=== PATIENT | female | born 1970 | race Caucasian/White ===

== ENCOUNTER → 2020-01-24 08:41 | Outpatient (BNVA) | payer OTHER, SELFPAY | PROVIDERS: PCP Internal Medicine; Referring Provider Internal Medicine; Visit Provider Surgery | DX: Z76.89 Persons encountering health services in other specified circumstances (principal) ==

== ENCOUNTER → 2020-01-25 08:11 | Outpatient (BNVA) | payer OTHER, SELFPAY | PROVIDERS: PCP Internal Medicine; Visit Provider Dietitian, Registered | DX: Z76.89 Persons encountering health services in other specified circumstances (principal) ==

== ENCOUNTER → 2020-02-08 13:37 | Outpatient (BNVA) | payer OTHER, SELFPAY | PROVIDERS: PCP Internal Medicine; Referring Provider Internal Medicine; Visit Provider Physician Assistant | DX: Z76.89 Persons encountering health services in other specified circumstances (principal) ==

== ENCOUNTER → 2020-02-29 10:43 | Outpatient (BNVA) | payer OTHER, SELFPAY | PROVIDERS: PCP Internal Medicine; Visit Provider Physician Assistant | DX: Z76.89 Persons encountering health services in other specified circumstances (principal) ==

== ENCOUNTER → 2020-03-05 12:20 | Outpatient (BNVA) | payer OTHER, SELFPAY | PROVIDERS: Visit Provider Surgery | DX: Z76.89 Persons encountering health services in other specified circumstances (principal) ==

== ENCOUNTER → 2020-03-16 13:59 | Outpatient (BNVA) | payer OTHER, SELFPAY | PROVIDERS: PCP Internal Medicine; Visit Provider Physician Assistant | DX: Z76.89 Persons encountering health services in other specified circumstances (principal) ==

== ENCOUNTER → 2020-03-16 13:59 | Outpatient (BNVA) | payer OTHER, SELFPAY | PROVIDERS: PCP Internal Medicine; Visit Provider Physician Assistant ==

== ENCOUNTER 2020-03-16 15:56 | Outpatient (REF) | payer OTHER, SELFPAY ==
[2020-03-16 16:32] LABS: MANUAL DIFF FLAG NO
[2020-03-16 16:39] LABS: Basophils Percent Auto 0.4 % (0-2); Eosinophils Absolute Auto 0.1 X10*3/uL (0.0-0.4); Hematocrit 37.8 % (37-47); Hemoglobin 12.2 g/dl (12.0-16.0); Imm Gran Abs Auto 0.02 X10*3/uL (0.00-0.03); Imm Gran Pct Auto 0.2 % (0.0-0.4); Lymphocytes Absolute Auto 2.4 X10*3/uL (1.2-4.9); Lymphocytes Percent Auto 25.6 % (20-40); Mean Corpuscular HGB Conc 32.3 g/dl (31.0-35.0); Mean Corpuscular Hemoglobin 28.5 pg (27.0-33.0); Mean Corpuscular Volume 88.3 fL (80-98); Mean Platelet Volume 12.1 fL (9.4-12.3); Monocytes Absolute Auto 0.5 X10*3/uL (0.1-1.2); Monocytes Percent Auto 5.4 % (2-11); Neutrophils Absolute Auto 6.3 X10*3/uL (2.0-8.3); Neutrophils Percent Auto 67.4 % (45-73); Platelet Count 249 X10*3/uL (160-400); Red Blood Count 4.28 X10*6/uL (4.20-5.50); Red Cell Distribution Width 13.4 % (11.0-16.0); White Blood Count 9.4 X10*3/uL (4.8-10.8)
[2020-03-16 17:12] LABS: Albumin Level 4.2 g/dL (3.5-5.0); Anion Gap 14 (12-20); Blood Urea Nitrogen 18 mg/dL (9-16); Calcium 8.9 mg/dL (8.4-10.2); Carbon Dioxide 25 mmol/L (22-29); Chloride 105 mmol/L (96-108); Estimated Glomerular Filt Rate > 60; Glucose Random 90 mg/dL (60-115); Potassium 4.3 mmol/l (3.3-5.1); Sodium 140 mmol/L (135-145)
[2020-03-16 18:22] LABS: Glucose Urine UA NEG (NEG); Leukocyte Esterase Urine NEG (NEG); Nitrite Urine NEG (NEG); PH 5.5 (5.0-8.0); Specific Gravity - Urine >= 1.030 (1.005-1.025); Urine Blood 2+ (NEG); Urine Ketones NEG (NEG); Urine Protein NEG (NEG-TRACE)
[2020-03-16 18:26] LABS: Appearance Urine CLEAR; Color Urine YELLOW
[2020-03-16 18:44] LABS: Bacteria Urine TRACE /LPF; Squamous Epithelial Cell Urine 4+ /LPF; WBC Urine 0-2 /HPF (0-4)
== END 2020-03-16 15:57 | disposition home or self-care (01) ==
LOC: HO.LAB 15:56
PROVIDERS: PCP Internal Medicine; Visit Provider Surgery
DX: Z01.818 Encounter for other preprocedural examination (principal)
CPT/HCPCS: 36415; 80048; 81001; 82040; 85025

== ENCOUNTER 2020-03-19 11:45 | Outpatient (REF) | payer OTHER, SELFPAY ==
--- NOTE | 2020-03-19 11:54 | ECG_ITS ---
Test Reason : CP Blood Pressure : / mmHG Vent. Rate : 063 BPM Atrial Rate : 063 BPM P-R Int : 160 ms QRS Dur : 082 ms QT Int : 450 ms P-R-T Axes : 036 038 019 degrees QTc Int : 460 ms Normal sinus rhythm Normal ECG No previous ECGs available Referred By: Niurka Starkey Electronically Signed By:Ang Ruiz
[2020-03-19 13:01] LABS: Estimated Average Glucose 108 mg/dL; Hemoglobin A1c % 5.4 %
== END 2020-03-19 11:46 | disposition home or self-care (01) ==
LOC: HO.LAB 11:45
PROVIDERS: PCP Plastic Surgery; Visit Provider Surgery
DX: R06.02 Shortness of breath (principal)
CPT/HCPCS: 83036; 93005

== ENCOUNTER 2020-03-21 06:26 | Inpatient (IN) | payer OTHER, SELFPAY ==
[2020-03-15 08:50] VITALS: BMI 39.1
[2020-03-15 12:51] VITALS: BMI 39.1
--- NOTE | 2020-03-20 09:05 | MHC.SHP ---
Pre-Procedural Eval Section B Chief Complaint: morbid obesity Allergies: Allergies Allergy/AdvReac Type Severity Reaction Status Date / Time latex Allergy Intermediate Itching Verified 03/15/20 12:59 Plan Patient has been examined and remains a candidate for the planned procedure
--- NOTE | 2020-03-20 12:37 | HO.ANESPROP2 ---
Documented by User: Shiela Gallardo 03/20/20 12:40 HPI - Anesthesia Eval Consult details Narrative: 49yo F for Gastric Sleeve *NO IV/BP RIGHT SIDE* PMFSH Past Medical History Medical History Back pain History of radiation therapy History of right breast cancer Morbid obesity with BMI of 40.0-44.9, adult Obesity (BMI 30-39.9) Spinal stenosis Family History Family History Father Heart attack Type 2 diabetes mellitus Mother History of colon cancer Sister No problems noted. Sister Multiple sclerosis Surgical History Surgical History H/O elbow surgery H/O foot surgery History of colonoscopy History of endometrial ablation Status post right breast lumpectomy Social History Social History Are you a primary manager urgent care to a significant other at home: No Do you presently have visiting nurse or other home services: No Alcohol intake: current Alcohol intake frequency: a few times a month Smoking Status: Never smoker Use of substances other than those prescribed or required for medical reasons: No Have you been hit, kicked, punched, or otherwise hurt by someone within the past year? If so, by whom?: No Advance Directives Information Provided: No Recently lost weight without trying: No Meds Allergies Allergy/AdvReac Type Severity Reaction Status Date / Time latex Allergy Intermediate Itching Verified 03/15/20 12:59 perfume AdvReac Shortness Verified 03/21/20 06:26 of Breath Home Medications Medication Instructions Recorded Confirmed Type biotin 10,000 mcg capsule mcg PO DAILY cap 01/24/20 03/05/20 History cholecalciferol (vitamin D3) 250 250 mcg PO DAILY 01/24/20 03/05/20 History mcg (10,000 unit) capsule mecobalamin (vitamin B12) 1,000 1,000 mcg PO DAILY 01/24/20 03/05/20 History mcg chewable tablet omega-3 fatty acids 1,000 mg 1,000 mg PO DAILY 01/24/20 03/15/20 History capsule tamoxifen 10 mg tablet 10 mg PO DAILY tab 01/24/20 03/15/20 History ibuprofen 400 mg tablet 400 mg PO Q8H 02/08/20 03/05/20 History gabapentin 800 mg tablet 300 mg PO BID tab 03/05/20 03/05/20 History gabapentin 300 mg PO DAILY 03/15/20 03/15/20 History multivitamin 1 tab PO DAILY 03/15/20 03/15/20 History phentermine 37.5 mg PO DAILY 03/15/20 03/15/20 History Exam Exam Date and Time: March 20, 2020 1237 Height,Weight and Vital Signs: Height 5 ft 5 in Weight 106.594 kg Pertinent Lab Results Pertinent Lab Results: Laboratory Tests 03/16/20 16:10 Blood Type O Positive Antibody Screen NEGATIVE Laboratory Tests 03/16/20 03/16/20 03/19/20 16:10 16:10 12:30 WBC 9.4 Hgb 12.2 Hct 37.8 Plt Count 249 Sodium 140 Potassium 4.3 Chloride 105 Carbon Dioxide 25 BUN 18 H Creatinine 0.74 Hemoglobin A1c % 5.4 Calcium 8.9 Albumin 4.2 Narrative Narrative: EKG 03/19/20: Normal sinus rhythm Assessment and Plan Assessment Anesthesia Assessment: Chart Reviewed Documented by User: Sandee Conley 03/21/20 08:03 [facility] Past Medical History Medical History Back pain History of radiation therapy History of right breast cancer Morbid obesity with BMI of 40.0-44.9, adult Obesity (BMI 30-39.9) Spinal stenosis Family History Family History Father Heart attack Type 2 diabetes mellitus Mother History of colon cancer Sister No problems noted. Sister Multiple sclerosis Family history of problems with anesthesia: No Surgical History Surgical History H/O elbow surgery H/O foot surgery History of colonoscopy History of endometrial ablation Status post right breast lumpectomy History of Problems with Anesthesia: No Social History Social History Are you a primary manager urgent care to a significant other at home: No Do you presently have visiting nurse or other home services: No Alcohol intake: current Alcohol intake frequency: a few times a month Smoking Status: Never smoker Use of substances other than those prescribed or required for medical reasons: No Have you been hit, kicked, punched, or otherwise hurt by someone within the past year? If so, by whom?: No Advance Directives Information Provided: No Recently lost weight without trying: No Meds Allergies Allergy/AdvReac Type Severity Reaction Status Date / Time latex Allergy Intermediate Itching Verified 03/15/20 12:59 perfume AdvReac Shortness Verified 03/21/20 06:26 of Breath Home Medications Medication Instructions Recorded Confirmed Type biotin 10,000 mcg capsule mcg PO DAILY cap 01/24/20 03/05/20 History cholecalciferol (vitamin D3) 250 250 mcg PO DAILY 01/24/20 03/05/20 History mcg (10,000 unit) capsule mecobalamin (vitamin B12) 1,000 1,000 mcg PO DAILY 01/24/20 03/05/20 History mcg chewable tablet omega-3 fatty acids 1,000 mg 1,000 mg PO DAILY 01/24/20 03/15/20 History capsule tamoxifen 10 mg tablet 10 mg PO DAILY tab 01/24/20 03/15/20 History ibuprofen 400 mg tablet 400 mg PO Q8H 02/08/20 03/05/20 History gabapentin 800 mg tablet 300 mg PO BID tab 03/05/20 03/05/20 History gabapentin 300 mg PO DAILY 03/15/20 03/15/20 History multivitamin 1 tab PO DAILY 03/15/20 03/15/20 History phentermine 37.5 mg PO DAILY 03/15/20 03/15/20 History Exam Height,Weight and Vital Signs: Vital Signs Temp Pulse Resp BP Pulse Ox 03/21/20 06:53 97.8 F 68 16 121/77 100 Pertinent Lab Results Pertinent Lab Results: Laboratory Last Values Urine Test NEGATIVE (NEGATIVE) 03/21/20 06:30 COVID-19 (DELFIN) Negative (Negative) 03/21/20 06:30 COVID-19 Clin Com See Note 03/21/20 06:30 Blood Type O Positive 03/16/20 16:10 Antibody Screen NEGATIVE 03/16/20 16:10 Airway Mallampati Class: II TM Dist: >3cm Neck ROM: Full Heart: RRR Lungs: CTAB Assessment and Plan Assessment Anesthesia Assessment: Anesthesia Plan Discussed and Chart Reviewed Final Anesthetic Review NPO: Yes ASA Class: III Final Preanesthetic Review: No Changes in Pt Med Stat, Meds/Allgs Chart Reviewed, Consent Obtained/Reviewed and Anes Risks/Benef Reviewed Patient Risk: Intermediate Procedure Risk: Intermediate Assessment/Block/Sedation in SS: Assess/Block/Sedation-SS Anesthetic Plan Anesthetic Plan: GA Disposition: Standard PACU
[2020-03-21] VITALS (13 sets, daily range): BP systolic 120–169; BP diastolic 68–99; PULSE 68–85; RESP 14–20; TEMP 36.1–36.9; O2SAT 97–100
[2020-03-21 06:55] LABS: COVID-19 Test Negative (Negative)
[2020-03-21 07:01] LABS: UPreg QC Valid YES; Urine Pregnancy NEGATIVE (NEGATIVE)
--- NOTE | 2020-03-21 10:07 | PM.OP ---
Brief Operative Note Date of Service: 03/21/20 Pre-op diagnosis: Obesity BMI 39.1 Post-op diagnosis: other (Same and hiatal hernia) Procedure: Laparoscopic sleeve gastrectomy, paraesophageal hernia repair, Atilio block, intraoperative endoscopy Implants: None Surgeon: Niurka Starkey MD Anesthesia: HI [employer] Photographer: Solange Aguilar Estimated blood loss (mL): 20 Pathology: other (Partial gastrectomy) Condition: stable Disposition: PACU
--- NOTE | 2020-03-21 10:08 | W.PM.OPN ---
Operative Note Operative Note Date of Service: 03/21/20 Narrative: Patient was brought into the operating room and placed on the operating room table in the supine position. General anesthesia was induced. Normal DVT prophylaxis was instituted and the patient received 2 grams of cefotetan preoperatively. The abdomen was then prepped and draped in the normal sterile fashion. A safety time-out was performed. A mixture of 1% lidocaine with epinephrine and ??% Marcaine plain was used to anesthetize the planned incision site in the left upper quadrant. A #11 scalpel was used to make a 5 mm left upper quadrant transverse incision through which a veress needle was placed. Three pops were heard going through the fascia. A saline drop test was used to confirm that the veress needle was intraabdominal. An optiview technique was then used to place a 5mm port in the left upper quadrant. A 5 mm 30 degree laproscope was then placed through this port and the abdominal cavity was surveyed and was normal. The patient was placed in reverse Trendelenburg positioning. A roselyn liver retractor was then placed in the subxyphoid position and it was used to hold up the left lobe of the liver to the abdominal wall. This was secured to the bed using the liver retractor loomis. A HOLLEY block was then performed for pain control on the right side of the abdomen. A 5 mm port was placed in the right upper quadrant near the falciform ligament. A 12 mm port was then placed in the mid epigastrium. One additional 5 mm port was placed in the left upper quadrant just to the left of the placement of the first port. I then performed a HOLLEY block on the left side of the abdomen. I then removed the epigastric fat pad; there was a small (2 cm) anterior hiatal hernia noted. I reapproximated the left and right crura with a total of 2 stitches of 2-0 ethibond and a laparoscopic knot pusher. There was no residual hiatal hernia. I then opened up the angle of His. We then gained entry into the lesser sac about 4-5 cm from the pylorus. I had anesthesia place a 34 Tunisian orogastric tube into the distal antrum to use as a sizing tool for gastric pouch size. I divided the short gastric vessels up to the angle of His. We then started the creation of the gastric pouch by firing a 60 mm purple load endostapler up the stomach about 4-5 cm from the pylorus. We completed the creation of the gastric pouch using a total of 4 firings of a 60 mm and 1 firing of a 45 mm purple load stapler. We had anesthesia remove the orogastric tube, then we clamped across the distal antrum using a fired 60 mm endostapler. We flattened the patient and then instilled normal saline surrounding the newly created staple line. I then performed an on-table endoscopy. I passed the gastroscopy into the posterior oropharynx and down the esophagus evaluating the esophageal mucosa which was normal. There was no evidence of hiatal hernia. I passed the gastroscope into the gastric pouch and insufflated the gastric pouch. There was healthy pink mucosa and no evidence of active bleeding. There was no evidence of leak on laparoscopy. I desufflated the gastric pouch and removed the endoscope. I removed the endostapler from the abdomen and suctioned the fluid from the left upper quadrant. I then removed the partial gastrectomy specimen through the epigastric 12 mm port site. I reapproximated the 12 mm port using a 0 maxon suture with a laparoscopic suture passer. I instilled local anesthetic into the fascial closure site and tied the suture down at a pressure of 8-10 mm of Hg. There was no residual fascial defect. We removed the liver retractor and the left upper quadrant 5 mm ports under direct visualization. There was no evidence of any active bleeding. I desufflated the abdomen through the last remaining port and removed the laparoscope and 5 mm port. We reapproximated all incisions with a 4-0 monocryl subcuticular stitch. We cleaned and dried the abdominal skin and applied dermabond skin glue. All count were correct at the end of the case. The patient was awake and in stable condition prior to extubation and transfer to the recovery room.
[2020-03-21] MEDS: Lactated Ringers 1,000 ML 100 ML IVCONT (13:59)
[2020-03-21] MEDS: HYDROmorphone HCl 0.5 MG/0.5 ML SYRINGE 0.25 MG IVPUSH (14:00)
[2020-03-21] MEDS: Metoclopramide HCl 10 MG/2 ML VIAL IVPUSH (14:00)
[2020-03-21 15:55] LABS: Basophils Percent Auto 0.1 % (0-2); Hemoglobin 11.8 g/dl (12.0-16.0); Imm Gran Abs Auto 0.08 X10*3/uL (0.00-0.03); Imm Gran Pct Auto 0.5 % (0.0-0.4); Lymphocytes Absolute Auto 0.6 X10*3/uL (1.2-4.9); Lymphocytes Percent Auto 4.2 % (20-40); MANUAL DIFF FLAG SCAN; Mean Corpuscular HGB Conc 31.9 g/dl (31.0-35.0); Mean Corpuscular Volume 87.9 fL (80-98); Mean Platelet Volume 11.3 fL (9.4-12.3); Monocytes Absolute Auto 0.1 X10*3/uL (0.1-1.2); Monocytes Percent Auto 0.8 % (2-11); Neutrophils Absolute Auto 13.7 X10*3/uL (2.0-8.3); Neutrophils Percent Auto 94.4 % (45-73); Platelet Count 286 X10*3/uL (160-400); Red Blood Count 4.21 X10*6/uL (4.20-5.50); Red Cell Distribution Width 13.4 % (11.0-16.0); SCAN SMEAR FLAG 1; White Blood Count 14.6 X10*3/uL (4.8-10.8)
[2020-03-21 16:16] LABS: SLIDE REVIEW VERIFIED
[2020-03-21 16:28] LABS: Anion Gap 11 (12-20); Blood Urea Nitrogen 18 mg/dL (9-16); Calcium 8.1 mg/dL (8.4-10.2); Carbon Dioxide 28 mmol/L (22-29); Chloride 104 mmol/L (96-108); Creatinine Clr Calc Pharmacy 97.1; Estimated Glomerular Filt Rate > 60; Glucose Random 150 mg/dL (60-115); Potassium 4.6 mmol/l (3.3-5.1); Sodium 138 mmol/L (135-145)
--- NOTE | 2020-03-21 16:39 | PC.NURSE ---
PT RECIEVED INTO ROOM 387 AT 1345. SHE WAS AWAKE. UP TO BR WITH ASSSIT. ORIENTED TO UNIT. INCENTIVE GIVEN, STARTED PHASE 2 DIET. MEDICATED FOR PAIN AND SLIGHT NAUSEA. INCISION SITED D&I. VOIDED AGAIN AT 1515 300 MLS.
[2020-03-21] MEDS: ondansetron HCL 4 MG/2 ML VIAL IVPUSH (17:33)
[2020-03-21] MEDS: Famotidine/PF 20 MG/2 ML VIAL IVPUSH (20:50)
[2020-03-22] VITALS: BP 131/61; PULSE 70; RESP 18; TEMP 36.3; O2SAT 95
[2020-03-22] MEDS: ondansetron HCL 4 MG/2 ML VIAL IVPUSH ×2 (02:10→08:45)
[2020-03-22 03:51] VITALS: BP 146/73; PULSE 72; RESP 16; TEMP 35.8; O2SAT 97
[2020-03-22 04:09] LABS: Basophils Percent Auto 0.3 % (0-2); Eosinophils Percent Auto 0.3 % (0-4); Hematocrit 32.6 % (37-47); Hemoglobin 10.8 g/dl (12.0-16.0); Imm Gran Abs Auto 0.05 X10*3/uL (0.00-0.03); Imm Gran Pct Auto 0.3 % (0.0-0.4); Lymphocytes Absolute Auto 2.3 X10*3/uL (1.2-4.9); Lymphocytes Percent Auto 15.6 % (20-40); Mean Corpuscular HGB Conc 33.1 g/dl (31.0-35.0); Mean Corpuscular Hemoglobin 28.9 pg (27.0-33.0); Mean Corpuscular Volume 87.2 fL (80-98); Mean Platelet Volume 11.1 fL (9.4-12.3); Monocytes Absolute Auto 0.8 X10*3/uL (0.1-1.2); Monocytes Percent Auto 5.2 % (2-11); Neutrophils Absolute Auto 11.5 X10*3/uL (2.0-8.3); Neutrophils Percent Auto 78.3 % (45-73); Platelet Count 269 X10*3/uL (160-400); Red Blood Count 3.74 X10*6/uL (4.20-5.50); Red Cell Distribution Width 13.2 % (11.0-16.0); White Blood Count 14.7 X10*3/uL (4.8-10.8)
[2020-03-22 04:11] LABS: MANUAL DIFF FLAG NO
[2020-03-22] MEDS: Lactated Ringers 1,000 ML 100 ML IVCONT (04:37)
[2020-03-22 04:38] LABS: Anion Gap 12 (12-20); Blood Urea Nitrogen 11 mg/dL (9-16); Calcium 8.2 mg/dL (8.4-10.2); Carbon Dioxide 25 mmol/L (22-29); Chloride 106 mmol/L (96-108); Estimated Glomerular Filt Rate > 60; Glucose Random 95 mg/dL (60-115); Potassium 3.7 mmol/l (3.3-5.1); Sodium 139 mmol/L (135-145)
[2020-03-22 07:55] VITALS: BP 108/49; PULSE 70; RESP 18; TEMP 36.3; O2SAT 97
[2020-03-22] MEDS: Famotidine/PF 20 MG/2 ML VIAL IVPUSH (08:44)
--- NOTE | 2020-03-22 09:37 | PM.PNGS ---
Subjective Subjective Date of Service: 03/22/20 Patient reports: tolerating liquids well Interval history: Had at least 16 oz fluid since surgery, water and Propel. Some gas discomfort, no incisional pain or nausea. Ambulating and using incentive spirometer. Physical Exam Vital Signs: Vital Signs: Last Vital Signs Temp 97.4 F 03/22/20 07:55 Pulse 70 03/22/20 07:55 Resp 18 03/22/20 07:55 BP 108/49 L 03/22/20 07:55 Pulse Ox 97 03/22/20 07:55 Body Mass Index 39.1 Const: General: cooperative, comfortable, no acute distress, alert and awake Nutritional Appearance: obese GI: Inspection: Yes normal to inspection, Yes incision (normal, slight erythema at site of surgical glue, no tenderness/warmth/drai) and Yes obesity Extrem: Right lower extremity: lower leg Details: no tenderness; no edema Left lower extremity: lower leg Details: no tenderness; no edema Progress Note: A&P Assessment and plan (1) Obesity (BMI 30-39.9): Status: Acute (2) Intestinal malabsorption following gastrectomy: Status: Acute (3) S/P laparoscopic sleeve gastrectomy: Status: Acute (4) BMI 39.0-39.9,adult: Status: Acute Assessment and Plan: Patient doing well, and will discharge once seen to tolerate phase 3 protein shake. Discussed discharge instructions, will have two Tianna 4:1 shakes with 10 oz Fairlife milk each, fluids 64 oz total/day. All other discharge instructions given to patient. Fall Risk Details Current Medications: Current Medications Generic Name Dose Route Start Last Admin Trade Name Romeoq PRN Reason Stop Dose Admin Famotidine 20 mg 03/21/20 09:15 03/22/20 08:44 Famotidine/Pf 20 Mg/2 Ml Vial IVPUSH 20 mg BID EZRA Administration Fentanyl 25 mcg 03/21/20 10:58 Fentanyl Citrate/Pf 100 Mcg/2 Ml Vial IVPUSH Q5M PRN Pain, Moderate (Pain Scale 4-6 Gabapentin 300 mg 03/22/20 09:00 03/22/20 08:45 Gabapentin 300 Mg Capsule PO Not Given DAILY EZRA Hydromorphone HCl 0.25 mg 03/21/20 09:07 03/21/20 14:00 Hydromorphone Hcl 0.5 Mg/0.5 Ml Syringe IVPUSH 0.25 mg Q4H PRN Administration Pain, Moderate (Pain Scale 4-6 Hydromorphone HCl 0.25 mg 03/21/20 10:58 Hydromorphone Hcl 0.5 Mg/0.5 Ml Syringe IVPUSH Q5M PRN Pain, Severe (Pain Scale 7-10) Lactated Ringer's 1,000 mls @ 100 mls/hr 03/21/20 07:45 03/22/20 04:37 Lr IVCONT 100 mls/hr .Q10H EZRA Administration Acetaminophen 1,000 mg in 100 mls @ 16.7 mls/hr 03/21/20 16:00 03/22/20 04:38 Ofirmev IV 16.7 mls/hr .Q6H EZRA Administration Metoclopramide HCl 10 mg 03/21/20 09:07 03/21/20 14:00 Metoclopramide Hcl 10 Mg/2 Ml Vial IVPUSH 10 mg Q6H PRN Administration Nausea Ondansetron HCl 4 mg 03/21/20 09:15 03/22/20 08:45 Ondansetron Hcl 4 Mg/2 Ml Vial IVPUSH 4 mg Q8H EZRA Administration Ondansetron HCl 4 mg 03/21/20 10:58 Ondansetron Hcl 4 Mg/2 Ml Vial IVPUSH ONCE PRN Nausea and Vomiting Sodium Chloride 3 ml 03/21/20 16:00 03/22/20 09:04 0.9 % Sodium Chloride Flush 3 Ml Syringe IVFLUSH Not Given QSHIFT EZRA Time Spent With Patient Time: Total time spent is greater than 50% in coordination of care (as documented) at patient's floor/unit and/or counseling patient: Time with patient: 15 - 24 minutes
--- NOTE | 2020-03-22 09:48 | MHC.CM.PN ---
pt lives alone, she reports she is independent in her care. 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 pt will have her father provide transport at dc and will be staying c her for a few days p dc. pt denies the need for vna at dc. dc plan is home no svcs . cm to cont. to folow.
--- NOTE | 2020-03-22 11:09 | HO.POSTANES ---
Post Anesthesia Evaluation Post Anesthesia Evaluation Vital Signs: Vital Signs Temp Pulse Resp BP Pulse Ox 03/22/20 07:55 97.4 F 70 18 108/49 L 97 03/22/20 03:51 96.5 F L 72 16 146/73 H 97 03/22/20 00:00 97.3 F 70 18 131/61 95 Anesthesia: General Endotracheal-GETA Mental Status: Awake Pain Control: Satisfactory Nausea/Vomiting: None Hydration: Adequate Anesthesia-Related Issues: No Anes. Related Issues
--- NOTE | 2020-03-28 15:55 | PM.DS ---
DS: Providers Provider Date of admission: 03/21/20 06:26 Primary care physician: Rajiv Floyd MD DS: Diagnosis Discharge Diagnosis (1) Obesity (BMI 30-39.9): Status: Acute (2) Intestinal malabsorption following gastrectomy: (3) S/P laparoscopic sleeve gastrectomy: Status: Acute (4) BMI 39.0-39.9,adult: Status: Acute DS: Medications Discharge Medications Home Medications: Home Medications Medication Instructions Recorded Confirmed diphenhydramine HCl 25 mg capsule 25 mg PO BEDTIME 03/28/20 03/28/20 Previous Rx's Medication Instructions Recorded acetaminophen 500 mg tablet 1,000 mg PO Q6H PRN #30 tab 03/05/20 lidocaine 4 % topical cream 1 appl TOPICAL BID #15 g 03/28/20 triamcinolone acetonide 0.025 % 1 appl TOPICAL BID #15 g 03/28/20 topical ointment DS: Summary Time Spent with Patient Time attestation: Total time spent providing and/or coordinating discharge services: Physical Exam Vital Signs: Vital Signs: Last Vital Signs Temp 97.4 F 03/22/20 07:55 Pulse 70 03/22/20 07:55 Resp 18 03/22/20 07:55 BP 108/49 L 03/22/20 07:55 Pulse Ox 97 03/22/20 07:55 Body Mass Index 39.1 DS: Data Data Completed and Pending Completed studies during hospitalization [Text1]: Procedures Excision of Stomach, Percutaneous Endoscopic Approach, Vertical (03/21/20) Repair Diaphragm, Percutaneous Endoscopic Approach (03/21/20) Labs on day of discharge: 03/16/20 16:10 Type and Screen Routine 03/21/20 06:13 Acetaminophen [Ofirmev] 1,000 mg in 100 ml IV PREOP cefoTEtan disod/Dextrose,Iso [Cefotan] 2 gm in 50 ml IV PREOP 03/21/20 06:30 COVID-19 ID NOW (Arora) Stat Ur Preg Test Stat 03/21/20 07:02 Acetaminophen [Ofirmev] 1,000 mg in 100 ml IV As directed cefoTEtan disodium [Cefotan] 2 gm .ROUTE .STK-MED ONE 03/21/20 07:45 Lactated Ringers [Lr] 1,000 ml IVCONT 100 mls/hr 03/21/20 08:06 Bupivacaine MPF 0.25 % [Sensorcaine-MPF 0.25% 10 ML] 10 ml .ROUTE .STK-MED ONE Lidocaine HCl 1%/Epi 1:100,000 [Xylocaine 1 %-Epi 1:100,000] 20 ml .ROUTE .STK-MED ONE 03/21/20 08:57 Lidocaine HCl 2 % MPF [Xylocaine 2 % MPF] 5 ml .ROUTE .STK-MED ONE dexAMETHasone sod phosphate [Decadron] 4 mg .ROUTE .STK-MED ONE 03/21/20 09:05 Transfer Order Routine 03/21/20 09:07 Ambulate Q4H WHILE AWAKE Compression Therapy QSHIFT Head of bed elevation DIRECTED Incentive Spirometry Q1HR WHILE AWAKE Intake and Output Q4HR Code Status Routine HYDROmorphone HCl [Dilaudid] 0.25 mg IVPUSH Q4H PRN Metoclopramide HCl [Reglan] 10 mg IVPUSH Q6H PRN 03/21/20 09:08 Vital Signs Q4H 03/21/20 09:09 ondansetron HCL [Zofran] 4 mg .ROUTE .STK-MED ONE 03/21/20 09:10 HYDROmorphone HCl [Dilaudid] 2 mg .ROUTE .STK-MED ONE 03/21/20 09:15 Famotidine/PF [Pepcid/PF] 20 mg IVPUSH BID ondansetron HCL [Zofran] 4 mg IVPUSH Q8H 03/21/20 09:44 Sugammadex Sodium [Bridion] 200 mg IVPUSH .STK-MED ONE 03/21/20 10:38 Famotidine/PF [Pepcid/PF] 20 mg IVPUSH .STK-MED ONE 03/21/20 10:58 Continuous pulse oximetry CONT Vital Signs Q1H Vital Signs Q5MIN HYDROmorphone HCl [Dilaudid] 0.25 mg IVPUSH Q5M PRN fentaNYL citrate/PF [Sublimaze] 25 mcg IVPUSH Q5M PRN ondansetron HCL [Zofran] 4 mg IVPUSH ONCE PRN 03/21/20 10:59 Oxygen administration Nasal Cannula 2 lpm 03/21/20 15:30 Basic Metabolic Panel DAILY@0500 Complete Blood Count Auto Diff DAILY@0500 SLIDE REVIEW Routine 03/21/20 Lunch Bariatric Phase 2 Diet 03/21/20 16:00 0.9 % Sodium Chloride Flush [NS Flush] 3 ml IVFLUSH QSHIFT Acetaminophen [Ofirmev] 1,000 mg in 100 ml IV 16.7 mls/hr 03/21/20 20:00 cefoTEtan disodium [Cefotan] 2 gm 0.9 % Sodium Chloride [Ns] 100 ml IV ONCE@199903/21/20 20:41 cefoTEtan disodium [Cefotan] 2 gm .ROUTE .STK-MED ONE 03/22/20 04:02 Basic Metabolic Panel DAILY@0500 Complete Blood Count Auto Diff DAILY@0500 03/22/20 09:00 Gabapentin [Neurontin] 300 mg PO DAILY Laboratory Last Values WBC 14.7 X10*3/uL (4.8-10.8) H 03/22/20 04:02 RBC 3.74 X10*6/uL (4.20-5.50) L 03/22/20 04:02 Hgb 10.8 g/dl (12.0-16.0) L 03/22/20 04:02 Hct 32.6 % (37-47) L 03/22/20 04:02 MCV 87.2 fL (80-98) 03/22/20 04:02 MCH 28.9 pg (27.0-33.0) 03/22/20 04:02 MCHC 33.1 g/dl (31.0-35.0) 03/22/20 04:02 RDW 13.2 % (11.0-16.0) 03/22/20 04:02 Plt Count 269 X10*3/uL (160-400) 03/22/20 04:02 MPV 11.1 fL (9.4-12.3) 03/22/20 04:02 Immature Gran % (Auto) 0.3 % (0.0-0.4) 03/22/20 04:02 Neut % (Auto) 78.3 % (45-73) H 03/22/20 04:02 Lymph % (Auto) 15.6 % (20-40) L 03/22/20 04:02 Pershing % (Auto) 5.2 % (2-11) 03/22/20 04:02 Eos % (Auto) 0.3 % (0-4) 03/22/20 04:02 Baso % (Auto) 0.3 % (0-2) 03/22/20 04:02 Lymph # (Auto) 2.3 X10*3/uL (1.2-4.9) 03/22/20 04:02 Pershing # (Auto) 0.8 X10*3/uL (0.1-1.2) 03/22/20 04:02 Eos # (Auto) 0.0 X10*3/uL (0.0-0.4) 03/22/20 04:02 Baso # (Auto) 0.0 X10*3/uL (0.0-0.2) 03/22/20 04:02 Abs Immat Gran (auto) 0.05 X10*3/uL (0.00-0.03) H 03/22/20 04:02 Absolute Neuts (auto) 11.5 X10*3/uL (2.0-8.3) H 03/22/20 04:02 Absolute Nucleated RBC 0.000 X10*3/uL (0.0-0.012) 03/22/20 04:02 Nucleated RBC % (auto) 0.0 /100WBC (0.0-0.2) 03/22/20 04:02 Smear Tech's Comments VERIFIED 03/21/20 15:30 Sodium 139 mmol/L (135-145) 03/22/20 04:02 Potassium 3.7 mmol/l (3.3-5.1) 03/22/20 04:02 Chloride 106 mmol/L (96-108) 03/22/20 04:02 Carbon Dioxide 25 mmol/L (22-29) 03/22/20 04:02 Anion Gap 12 (-20) 03/22/20 04:02 BUN 11 mg/dL (9-16) 03/22/20 04:02 Creatinine 0.75 mg/dL (0.5-1.4) 03/22/20 04:02 Estim Creat Clear Calc 110.0 03/22/20 04:02 Estimated GFR > 60 03/22/20 04:02 Random Glucose 95 mg/dL (60-115) D 12/17/20 04:02 Calcium 8.2 mg/dL (8.4-10.2) L 03/22/20 04:02 Urine Test NEGATIVE (NEGATIVE) 03/21/20 06:30 COVID-19 (DELFIN) Negative (Negative) 03/21/20 06:30 COVID-19 Clin Com See Note 03/21/20 06:30 Blood Type O Positive 03/16/20 16:10 Antibody Screen NEGATIVE 03/16/20 16:10 Discharge Plan Discharge Anticipated Discharge Date/Time: 03/22/20 11:22 Patient Disposition: Home, Self-Care Referrals: Rajiv Floyd MD [Primary Care Provider] - Discharge Medications: Continued acetaminophen [Tylenol Extra Strength] 500 mg tablet 1,000 mg PO Q6H PRN (Reason: pain) Qty: 30 RF: 1 Discontinued phentermine 37.5 mg Capsule 37.5 mg PO DAILY RF: 0 ibuprofen 400 mg tablet 400 mg PO Q8H RF: 0 No Action diphenhydramine HCl 25 mg capsule 25 mg PO BEDTIME RF: 0 triamcinolone acetonide 0.025 % ointment 1 appl topical BID Qty: 15 RF: 0 lidocaine 4 % cream 1 appl topical BID Qty: 15 RF: 0 Discharge Orders: Discharge Order (Routine); Ordered 03/22/20 Ordered By: Niurka Starkey Diet: other Activity on Discharge: No heavy lifting Discharge Date/Time: 03/22/20 12:01 Activity Restrictions/Additional Instructions: No tub baths, sex or returning to work until discussed at first post op appointment. No exercise, alcohol, tobacco or illegal drug use. Continue to use incentive spirometer hourly while awake. Walk in home for 5- 10 minutes every 2 hours during the first week. Continue phase 3 diet until first post op appointment. Follow all instructions in the bariatric handbook and call with any questions. (discussed having 2 Celebrate 4:1 shakes with 10 oz Fairlife milk daily, and total of 64 oz fluid). Discharge Instructions 1. Please call your doctor or come back to the emergency room should any new symptoms arise. 2. You will receive a courtesy call from [facility] 24-48 hours after discharge. 3. Activity: abstain from alcohol, practice limited stair climbing, no bending, no driving, no exercise, no illicit substances, no lifting, no sex, no tub bath, no work. 4. Diet: continue stage 3 protein shakes until your [address] Starkey. 5. Dressing Change/Wound Care: Your incision is covered by surgical glue. If the area is tender, you may apply an ice pack for short intervals (no more than 20 minutes on, followed by at least 20 minutes off). Do not apply heat. Do not use creams, lotions, or topical antibiotics unless instructed to do so by your surgeon. These can cause infection or allergic reaction. 6. Call your doctor if: - Your temperature exceeds 101.5 F - You experience excessive pain or swelling - You have an unexpected reaction to medication - You have excessive bleeding - You experience continued vomiting/nausea - Your incision begins to separate - Your incision shows signs of infection such as increased redness, swelling, excessive pain, heat, or drainage (light blood or clear fluid is normal) 7. General instructions: No lifting greater than 5 lbs for the next 4 weeks[address] within 24 hours of taking narcotic pain medications. If you do not move your bowels in the next 2 days, please take milk of magnesia over the counter. Please follow the post op diet and do not advance your diet until you are seen in the office in about 2 weeks. Please walk around your home every hour or two to prevent blood clots from forming in your legs. You do not need to wake from sleeping to walk. Please sleep in a bed or couch to prevent kinking at the hips and knees. Please take your incentive spirometer (your lung deputy sheriff lieutenant) home with you and use it for the next few days to prevent pneumonias. You may shower, no hot tubs, baths or swimming pools. Please call the office with any questions or concerns such as increasing abdominal pain, fever, chills, shortness of breath, chest pain, leg pain or swelling, or redness or drainage from your incisions. Please stay on stage 3 diet which includes sugar free clear liquids such as ice pops and jello and broth and crystal light. Avoid all carbonation. Please drink 3 protein shakes with at least 25-30 grams of protein daily or 3 of the Celebrate 4:1 shakes which can be purchased in our office. The Celebrate shakes have all of the bariatric vitamins you need if you consume these shakes. If you are drinking other protein shakes, you will need to purchase the Celebrate multivitamins and calcium that we provide in the office (they will provide all the vitamins you need). Please make sure you are consuming at least 40-60 ounces of water in addition to your 3 protein shakes daily. Do not hesitate to contact the office with any questions at . DATE OF SERVICE: March 21, 2020 ADMITTING DIAGNOSES: morbid obesity DISCHARGE DIAGNOSES: same with hiatal hernia PROCEDURE PERFORMED: laparoscopic sleeve gastrectomy and hiatal hernia repair DISCHARGE MEDICATIONS: 1. Simethicone 80mg q4h prn gas 2. Ondansetron 4mg po tid prn nausea 3. Famotidine 20mg po bid 4. Docusate sodium 100mg po bid DISCHARGE INSTRUCTIONS: The patient should continue on the stage III bariatric diet, which includes 3 protein shakes of at least 20- 30g of protein on a daily basis. The patient was encouraged to avoid drinking liquids with her protein shakes. She should wait 30-45 minutes in between her meals and drinking water. She should drink at least 40-60 ounces of water on a daily basis. She should ambulate while at home to avoid any blood clots in her lower extremities. She should call with any questions or concerns such as increase in abdominal pain, persistent nausea, vomiting, redness and drainage from her incisions, fever, chills, shortness of breast, or chest pain beyond what is normal for her. The patient should avoid all heavy lifting greater than 5 pounds for the next 4 weeks. The patient is already scheduled to follow up with me in 2 weeks time, but should call the office with any questions prior to that follow up appointment. The patient should not advance her diet until she is seen in the office for the 2 week appointment. HOSPITAL COURSE: The patient was admitted after undergoing laparoscopic sleeve gastrectomy. She was started on stage II diet and was tolerating well without nausea or vomiting. Her pain was controlled on IV Dilaudid. All labs were within normal limits. On post-operative day #2 she was feeling better, nausea and epigastric pain improved and she was tolerating stage III bariatric diet well. She was discharged home. DISCHARGE DISPOSITION: Home. Visit Report Forms: Patient Portal Discharge page Care Plan Goals: weight loss Health Concerns: obesity Plan of Treatment: see discharge instructions
== END 2020-03-22 12:01 | disposition home or self-care (01) | DRG 620 ==
LOC: HO.SSSA 06:27 → HO.S3 12:39
PROVIDERS: Nurse Practitioner; Physician Assistant; Admitting Provider Surgery; PCP Internal Medicine; Visit Provider Nuclear Medicine
PROC: 0DB64Z3 Excision of Stomach, Percutaneous Endoscopic Approach, Vertical (ICD-10-PCS; CPT 43845; principal; 2020-03-21 08:10)
DX: E66.01 Morbid (severe) obesity due to excess calories (principal); K90.9 Intestinal malabsorption, unspecified; K44.9 Diaphragmatic hernia without obstruction or gangrene; C50.919 Malignant neoplasm of unspecified site of unspecified female breast; Z20.828 Contact with and (suspected) exposure to other viral communicable diseases; Z68.39 Body mass index [BMI] 39.0-39.9, adult; Z79.810 Long term (current) use of selective estrogen receptor modulators (SERMs); Z79.899 Other long term (current) drug therapy
CPT/HCPCS: 36415; 80048; 81025; 85025; 86850; 86900; 86901; 87635; 88307; 88342; C1776; J0131; J1100; J1170; J2250; J2405; J2765; J3010

== ENCOUNTER → 2020-03-28 09:00 | Outpatient (BNVA) | payer OTHER, SELFPAY | PROVIDERS: PCP Internal Medicine; Visit Provider Physician Assistant | DX: Z76.89 Persons encountering health services in other specified circumstances (principal) ==

== ENCOUNTER → 2020-04-05 16:02 | Outpatient (BNVA) | payer OTHER, SELFPAY | PROVIDERS: PCP Internal Medicine; Visit Provider Surgery | DX: Z76.89 Persons encountering health services in other specified circumstances (principal) ==

== ENCOUNTER → 2020-04-18 10:03 | Outpatient (BNVA) | payer OTHER, SELFPAY | PROVIDERS: PCP Internal Medicine; Visit Provider Physician Assistant | DX: Z76.89 Persons encountering health services in other specified circumstances (principal) ==

== ENCOUNTER → 2020-05-02 08:24 | Outpatient (BNVA) | payer OTHER, SELFPAY | PROVIDERS: PCP Internal Medicine; Visit Provider Physician Assistant | DX: Z76.89 Persons encountering health services in other specified circumstances (principal) ==

== ENCOUNTER → 2020-05-23 10:09 | Outpatient (BNVA) | payer OTHER, SELFPAY | PROVIDERS: PCP Internal Medicine; Visit Provider Dietitian, Registered ==

== ENCOUNTER → 2020-06-25 10:00 | Outpatient (BNVA) | payer OTHER, SELFPAY | PROVIDERS: PCP Internal Medicine; Visit Provider Surgery ==

== ENCOUNTER → 2020-07-25 10:00 | Outpatient (BNVA) | payer OTHER, SELFPAY | PROVIDERS: PCP Internal Medicine; Visit Provider Physician Assistant ==

== ENCOUNTER → 2020-09-12 14:18 | Outpatient (BNVA) | payer OTHER, SELFPAY | PROVIDERS: PCP Internal Medicine; Visit Provider Surgery | DX: Z01.818 Encounter for other preprocedural examination (principal); K91.2 Postsurgical malabsorption, not elsewhere classified; Z90.3 Acquired absence of stomach [part of] ==

== ENCOUNTER 2020-09-26 08:23 | Outpatient (REF) | payer OTHER, SELFPAY ==
[2020-09-26 09:06] LABS: MANUAL DIFF FLAG NO
[2020-09-26 09:18] LABS: Basophils Absolute Auto 0.1 X10*3/uL (0.0-0.2); Eosinophils Absolute Auto 0.2 X10*3/uL (0.0-0.4); Eosinophils Percent Auto 3.3 % (0-4); Hematocrit 36.9 % (37-47); Hemoglobin 11.7 g/dl (12.0-16.0); Imm Gran Abs Auto 0.01 X10*3/uL (0.00-0.03); Imm Gran Pct Auto 0.2 % (0.0-0.4); Lymphocytes Absolute Auto 1.6 X10*3/uL (1.2-4.9); Lymphocytes Percent Auto 32.1 % (20-40); Mean Corpuscular HGB Conc 31.7 g/dl (31.0-35.0); Mean Corpuscular Hemoglobin 29.3 pg (27.0-33.0); Mean Corpuscular Volume 92.3 fL (80-98); Mean Platelet Volume 11.5 fL (9.4-12.3); Monocytes Absolute Auto 0.3 X10*3/uL (0.1-1.2); Monocytes Percent Auto 6.3 % (2-11); Neutrophils Absolute Auto 2.9 X10*3/uL (2.0-8.3); Neutrophils Percent Auto 57.1 % (45-73); Platelet Count 270 X10*3/uL (160-400); Red Cell Distribution Width 13.4 % (11.0-16.0); White Blood Count 5.1 X10*3/uL (4.8-10.8)
[2020-09-26 09:58] LABS: Alanine Aminotransferase < 6 U/L (0-31); Albumin Level 4.1 g/dL (3.5-5.0); Alkaline Phosphatase 60 U/L (39-117); Anion Gap 12 (12-20); Aspartate Amino Transferase 15 U/L (5-31); Bilirubin Total 0.9 mg/dL (0.0-1.0); Blood Urea Nitrogen 24 mg/dL (9-16); C Reactive Protein 0.17 mg/dL (< or = 0.50); Calcium 9.4 mg/dL (8.4-10.2); Carbon Dioxide 29 mmol/L (22-29); Chloride 104 mmol/L (96-108); Cholesterol 155 mg/dL; Estimated Glomerular Filt Rate > 60; Glucose Fasting 98 mg/dL (60-99); HDL Cholesterol 53 mg/dL; Iron 114 mcg/dL (30-160); LDL Cholesterol Calculated 86 mg/dl; Percent Iron Saturation 38 % (15-50); Potassium 4.3 mmol/L (3.3-5.1); Sodium 141 mmol/L (135-145); Total Iron Binding Capacity 301 mcg/dL (228-428); Total Protein 6.8 g/dL (6.5-8.0); Triglycerides 84 mg/dL; Unsaturated Iron Binding 187 ug/dL
[2020-09-26 10:01] LABS: Thyroid Stimulating Hormone 0.69 uIU/mL (0.32-4.0); Vitamin D 25-OH Total 62.2 ng/mL (>30)
[2020-09-26 10:10] LABS: Vitamin B12 474 pg/mL (200-900)
[2020-09-26 10:56] LABS: Estimated Average Glucose 94 mg/dL; Hemoglobin A1c % 4.9 %
[2020-09-29 16:57] LABS: Zinc 77 mcg/dL (60-130)
[2020-10-01 17:07] LABS: Vitamin A 61 mcg/dL (38-98)
[2020-10-03 14:26] LABS: Vitamin B1 9 nmol/L (8-30)
== END 2020-09-26 08:24 | disposition home or self-care (01) ==
LOC: HO.LAB 08:23
PROVIDERS: PCP Internal Medicine; Visit Provider Surgery
DX: Z01.818 Encounter for other preprocedural examination (principal); K91.2 Postsurgical malabsorption, not elsewhere classified; Z90.3 Acquired absence of stomach [part of]
CPT/HCPCS: 36415; 80053; 80061; 82306; 82607; 83036; 83540; 84425; 84443; 84590; 84630; 85025; 86140

== ENCOUNTER → 2020-11-08 08:15 | Outpatient (BNVA) | payer OTHER, SELFPAY | PROVIDERS: PCP Internal Medicine; Visit Provider Dietitian, Registered | DX: E66.9 Obesity, unspecified (principal); Z68.31 Body mass index [BMI] 31.0-31.9, adult | CPT/HCPCS: 97803 ==

== ENCOUNTER → 2021-01-07 13:57 | Outpatient (BNVA) | payer OTHER, SELFPAY | PROVIDERS: PCP Internal Medicine; Referring Provider Internal Medicine; Visit Provider Physician Assistant Surgical ==

== ENCOUNTER → 2021-03-08 16:02 | Outpatient (BNVA) | payer OTHER, SELFPAY | PROVIDERS: PCP Internal Medicine; Visit Provider Physician Assistant ==

== ENCOUNTER 2021-03-18 16:51 | Outpatient (REF) | payer OTHER, SELFPAY ==
[2021-03-18 17:40] LABS: Anion Gap 12 (12-20); Blood Urea Nitrogen 24 mg/dL (9-16); Calcium 9.5 mg/dL (8.4-10.2); Carbon Dioxide 28 mmol/L (22-29); Chloride 105 mmol/L (96-108); Estimated Glomerular Filt Rate > 60; Glucose Random 83 mg/dL (60-115); Potassium 4.2 mmol/L (3.3-5.1); Sodium 141 mmol/L (135-145)
== END 2021-03-18 16:52 | disposition home or self-care (01) ==
LOC: HO.LAB 16:51
PROVIDERS: Referring Provider Physician Assistant; Visit Provider Physician Assistant Surgical
DX: E66.9 Obesity, unspecified (principal)
CPT/HCPCS: 36415; 80048

== ENCOUNTER 2021-03-20 12:25 | Outpatient (REF) | payer OTHER, SELFPAY ==
--- NOTE | ~2021-03-20 | CT_ITS ---
EXAMINATION: CT ABDOMEN AND PELVIS WITH CONTRAST CLINICAL INFORMATION: Intra-abdominal and pelvic swelling, mass and lump. COMPARISON: Pelvic MR July 2020 and pelvic ultrasound March 2018 TECHNIQUE: Multidetector volumetric images were obtained from the superior aspect of the liver through the pubic symphysis following administration 85 mL of Omnipaque 350 intravenous contrast. Sagittal and coronal reformatted images were obtained on the technologist's workstation. Oral contrast: Yes This CT examination was performed using dose optimization techniques as appropriate, variously including the following: *Automated exposure control *Adjustment of mA and/or kV according to patient size (this includes techniques or standardized protocols for targeted exams where dose is matched to indication/reason for exam; i.e. extremities or head) *Use of iterative reconstruction technique DLP: 559 mGy-cm FINDINGS: LUNG BASES: The visualized lung bases are unremarkable. LIVER, GALLBLADDER, AND BILIARY TREE: The liver is normal in size, shape, and attenuation. No focal hepatic lesion or biliary ductal dilatation is present. The gallbladder is unremarkable with no evidence of radiopaque gallstones, gallbladder wall thickening, or obvious pericholecystic inflammatory changes. PANCREAS: Unremarkable. SPLEEN: Unremarkable. ADRENAL GLANDS: Unremarkable. KIDNEYS AND URETERS: The kidneys are normal in size, shape, and attenuation. No hydronephrosis, hydroureter, or calculi seen. No perinephric stranding. BLADDER: Not well distended. GASTROINTESTINAL TRACT: There is stool throughout the colon suggestive of constipation. The small and large bowel are otherwise unremarkable. The appendix is unremarkable. There are postsurgical changes following gastric sleeve procedure. ABDOMINAL WALL: No significant hernia is appreciated. LYMPH NODES: Normal. VASCULAR: Unremarkable. PELVIC VISCERA: Uterus appears to have been removed. No pelvic mass is seen. OSSEOUS STRUCTURES: There are degenerative changes of the spine. CT/CT abdomen pelvis w con IMPRESSION: No acute findings. Constipation. Postoperative change following gastric sleeve procedure. Fleischner guidelines were followed.
[2021-03-20] MEDS: iohexoL 350 MG/ML 100 ML INFUS..BTL IV (15:49)
== END 2021-03-20 12:26 | disposition home or self-care (01) ==
LOC: HO.CT 12:25
PROVIDERS: Visit Provider Physician Assistant
DX: R19.00 Intra-abdominal and pelvic swelling, mass and lump, unspecified site (principal)
CPT/HCPCS: 74177; Q9967

== ENCOUNTER → 2021-03-27 08:10 | Outpatient (BNVA) | payer OTHER, SELFPAY | PROVIDERS: PCP Internal Medicine; Visit Provider Physician Assistant Surgical ==

== ENCOUNTER 2021-04-03 08:07 | Outpatient (REF) | payer OTHER, SELFPAY ==
[2021-04-03 08:33] LABS: MANUAL DIFF FLAG NO
[2021-04-03 08:50] LABS: Basophils Percent Auto 0.7 % (0-2); Eosinophils Absolute Auto 0.2 X10*3/uL (0.0-0.4); Eosinophils Percent Auto 2.7 % (0-4); Hematocrit 39.3 % (37.0-47.0); Hemoglobin 12.6 g/dl (12.0-16.0); Imm Gran Abs Auto 0.02 X10*3/uL (0.00-0.03); Imm Gran Pct Auto 0.3 % (0.0-0.4); Lymphocytes Percent Auto 33.4 % (20-40); Mean Corpuscular HGB Conc 32.1 g/dl (31.0-35.0); Mean Corpuscular Hemoglobin 29.2 pg (27.0-33.0); Mean Corpuscular Volume 91.2 fL (80.0-98.0); Mean Platelet Volume 11.1 fL (9.4-12.3); Monocytes Absolute Auto 0.3 X10*3/uL (0.1-1.2); Monocytes Percent Auto 5.7 % (2-11); Neutrophils Absolute Auto 3.4 x10*3/uL (2.0-8.3); Neutrophils Percent Auto 57.2 % (45-73); Platelet Count 252 X10*3/uL (160-400); Red Blood Count 4.31 X10*6/uL (4.20-5.50)
[2021-04-03 09:03] LABS: Anion Gap 10 (12-20); Blood Urea Nitrogen 23 mg/dL (9-16); Calcium 9.7 mg/dL (8.4-10.2); Carbon Dioxide 31 mmol/L (22-29); Chloride 103 mmol/L (96-108); Estimated Glomerular Filt Rate > 60; Glucose Random 87 mg/dL (60-115); Potassium 4.2 mmol/L (3.3-5.1); Sodium 140 mmol/L (135-145)
[2021-04-08 06:11] LABS: Vitamin B1 30 nmol/L (8-30)
== END 2021-04-03 08:08 | disposition home or self-care (01) ==
LOC: HO.LAB 08:07
PROVIDERS: PCP Internal Medicine; Visit Provider Physician Assistant Surgical
DX: E66.9 Obesity, unspecified (principal); K91.2 Postsurgical malabsorption, not elsewhere classified; Z90.3 Acquired absence of stomach [part of]
CPT/HCPCS: 36415; 80048; 84425; 85025

== ENCOUNTER 2023-01-21 10:18 | Outpatient (AMB) | payer OTHER, SELFPAY ==
--- NOTE | 2023-01-21 10:21 | A.OFFVIS_ITS ---
Intake VS Expanded 01/21/23 10:52 BP 123/60 Blood Pressure Location Rt brachial Blood Pressure Position Sitting Pulse 57 Pulse Source Pulse Oximeter Temp 97.6 F Temperature Source Temporal Artery Scan Pulse Oximetry 100 Oxygen Delivery Method Room Air Height 5 ft 5.5 in Weight 217 lb 6.4 oz BMI 35.6 Body Fat % 40.6 Body Fat Mass 88.2 Fat Free Mass 129.2 Visceral Fat Rating 11.0 Body Water % 42.3 Body Water Mass 92.0 Muscle Mass/Score 122.6 Basal Metabolic Rate/Score 1,779 Intake Visit Reasons: (ov) PO LSG [birth year]1971 Pulmonary Fellow Required: No Allergies Iodine and Iodide Containing Produc Allergy (Severe, Verified 01/21/23 10:43) Rash latex Allergy (Intermediate, Verified 01/21/23 10:43) Itching perfume Adverse Reaction (Verified 01/21/23 10:43) Shortness of Breath Medication List - Last Reconciled 01/21/23 by MARCIAL Klein acetaminophen (Tylenol Extra Strength) 1,000 mg (2 x 500 mg) PO Q6H PRN biotin-chromium 2-600 mg-mcg caps PO calcium citrate-vitamin D3 315 mg-5 mcg (200 unit) (Calcium Citrate + D) 1 tab PO DAILY [fish oil PO] inulin (Fiber Gummies) 2 grams PO DAILY multivitamin 1 tab PO DAILY omega-3 fatty acids (Fish Oil Concentrate) 1,000 mg PO DAILY [ PO] tamoxifen 20 mg PO DAILY turmeric mg PO vitamin B complex (Vitamins B Complex tablet) 1 tab PO DAILY [vitamin d PO] [vitamin d PO] vitamin E 200 units PO DAILY [vitamin e PO] HPI HPI Comments History of Present Illness Details The patient is a pleasant 52-year-old female who returns to the office today for a follow-up to her sleeve gastrectomy performed 03/21/2020. This is a 3 year follow-up. She was last seen in March 2021 when her weight was 204 lb. Today her weight is 217.4 lb with a BMI of 35.7. She reports that she has been working out very hard with a technical trainer although not following a strict meal plan. Reports her goal is to continue to lose weight although she does state that she feels very good overall with increased energy and strength. States her goal weight is 178 pounds. States that she would like to resume a more strict meal plan consisting of 2 shakes and a meal, using Syntha 6 protein powder (22 gm per scoop) in water Meal plan: Fairlife shake 30 gm (20-30 min) (she has also been adding dry peanut butter and biotin and leftover celebrate 4 in 1) 2 eggs 1 c oatmeal w blueberries, coffee w crea m and sugar steak or chicken 3 oz w 1/2 to 1 c mashed cauliflower sometimes 1/2 bagel PB crackers, 2 another shake, 30 gm repeat of lunch 3 oz protein and veg drinking 100 oz water Exercise plan: weight training 4 x per week, then cardio elliptical 30-45 min or stationary bike , 250-350 flor[place]ma Any post op complications: none BEATA: never DM: never HTN: never Hyperlipidemia: never GERD:?0-5 scale ??0 = no symptoms ??1 = symptoms noticeable but not bothersome 2 =symptoms bothersome but not daily ? 3 = symptoms bothersome and daily 4 = symptoms affect daily activities 5 = symptoms are incapacitating, unable to do daily activities ? How bad is the heartburn: 0 ? Heartburn while lying down: 0 ? Heartburn when standing up: 0 ? Heartburn after meals: 0 ? Does heartburn change your diet: 0 ? Does heartburn wake you up from sleep: 0 ? Do you have difficulty swallowin ? Do you have pain with swallowin ? 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 Sister Multiple sclerosis Social History Are you a primary client care consultant to a significant other at home: No Do you presently have visiting nurse or other home services: No Alcohol intake: current Alcohol intake frequency: a few times a month Patient Tobacco Use Status: Never used Tobacco service: No Current occupational status: employed Physical Exam Vital Signs: Last Vital Signs Temp 97.6 F 01/21/23 10:52 Pulse 57 01/21/23 10:52 BP 123/60 01/21/23 10:52 Pulse Ox 100 01/21/23 10:52 Oxygen Delivery Method Room Air 01/21/23 10:52 BMI result Body Mass Index 35.6 Const General: cooperative and no acute distress Orientation/consciousness: patient oriented x3 Resp Effort & Inspection: normal respiratory effort Auscultation: clear to auscultation bilaterally Cardio Rate: regular rate Rhythm: regular rhythm GI Inspection: Yes normal to inspection and Yes incision (well healed) Palpation (GI): Soft to palpation and no masses Neuro General: patient oriented x3 Assessment & Plan Assessment & Plan (1) Obesity (BMI 30-39.9): Code(s): E66.9 - Obesity, unspecified Plan: will start new meal plan : Using Syntha 6 protein powder shake w 1.5 scoops in 12 oz water drank slowly from 8am-10am 1/2 - 3/4 cup fresh berries at noon if needed or an apple, pear, kiwi meal at 2 pm 4 oz protein and 4 oz mixed veg or salad (this should about an equal amount in volume to the protein portion of the meal. another shake at 6pm-8pm try to drink about 48 oz of water throughout the day as well. eat slowly and chew well, this will impact your sense of fullness be mindful of your eating and drinking Continue your exercise but track your calories burned for a goal of 2000 per week or 300 per day. communication via text weekly with your weights and if you are having any problems will significantly improve your outcomes. rtc 6 weeks check yearly labs Orders: Orders Complete Blood Count Auto Diff Today E66.9 - Obesity, unspecified, K91.2 - Postsurgical malabsorption, not elsewhere classified, Z90.3 - Acquired absence of stomach [part of], Z98.84 - Bariatric surgery status Zinc Today E66.9 - Obesity, unspecified, K91.2 - Postsurgical malabsorption, not elsewhere classified, Z90.3 - Acquired absence of stomach [part of], Z98.84 - Bariatric surgery status Vitamin B1 Today E66.9 - Obesity, unspecified, K91.2 - Postsurgical malabsorption, not elsewhere classified, Z90.3 - Acquired absence of stomach [part of], Z98.84 - Bariatric surgery status Vitamin A Today E66.9 - Obesity, unspecified, K91.2 - Postsurgical malabsorption, not elsewhere classified, Z90.3 - Acquired absence of stomach [part of], Z98.84 - Bariatric surgery status C Reactive Protein Today E66.9 - Obesity, unspecified, K91.2 - Postsurgical malabsorption, not elsewhere classified, Z90.3 - Acquired absence of stomach [part of], Z98.84 - Bariatric surgery status TSH reflex Free T4 Today E66.9 - Obesity, unspecified, K91.2 - Postsurgical malabsorption, not elsewhere classified, Z90.3 - Acquired absence of stomach [part of], Z98.84 - Bariatric surgery status Hemoglobin A1c Today E66.9 - Obesity, unspecified, K91.2 - Postsurgical malabsorption, not elsewhere classified, Z90.3 - Acquired absence of stomach [part of], Z98.84 - Bariatric surgery status Insulin Today E66.9 - Obesity, unspecified, K91.2 - Postsurgical malabsorption, not elsewhere classified, Z90.3 - Acquired absence of stomach [part of], Z98.84 - Bariatric surgery status Lipid Panel Today E66.9 - Obesity, unspecified, K91.2 - Postsurgical malabsorption, not elsewhere classified, Z90.3 - Acquired absence of stomach [part of], Z98.84 - Bariatric surgery status IRON PROFILE Today E66.9 - Obesity, unspecified, K91.2 - Postsurgical malabsorption, not elsewhere classified, Z90.3 - Acquired absence of stomach [part of], Z98.84 - Bariatric surgery status Vitamin B12 and Folate Today E66.9 - Obesity, unspecified, K91.2 - Postsurgical malabsorption, not elsewhere classified, Z90.3 - Acquired absence of stomach [part of], Z98.84 - Bariatric surgery status Ferritin Today E66.9 - Obesity, unspecified, K91.2 - Postsurgical malabsorption, not elsewhere classified, Z90.3 - Acquired absence of stomach [part of], Z98.84 - Bariatric surgery status PTHI Today E66.9 - Obesity, unspecified, K91.2 - Postsurgical malabsorption, not elsewhere classified, Z90.3 - Acquired absence of stomach [part of], Z98.84 - Bariatric surgery status Vitamin D 25-OH Total Today E66.9 - Obesity, unspecified, K91.2 - Postsurgical malabsorption, not elsewhere classified, Z90.3 - Acquired absence of stomach [part of], Z98.84 - Bariatric surgery status Basic Metabolic Panel Today E66.9 - Obesity, unspecified, K91.2 - Postsurgical malabsorption, not elsewhere classified, Z90.3 - Acquired absence of stomach [part of], Z98.84 - Bariatric surgery status Coding Level of Care Code Est Pt Level 4 (27808) Diagnoses Obesity (BMI 30-39.9) E66.9 Time Spent (min) 50
[2023-01-21 10:52] VITALS: BP 123/60; PULSE 57; TEMP 36.4; O2SAT 100; BMI 35.6
== END 2023-01-21 17:49 | disposition home or self-care (01) ==
PROVIDERS: PCP Internal Medicine; Visit Provider Physician Assistant Surgical
DX: E66.9 Obesity, unspecified (principal)
CPT/HCPCS: 99214

== ENCOUNTER 2023-01-21 10:18 | Outpatient (REF) | payer OTHER, SELFPAY ==
[2023-01-21 12:07] LABS: MANUAL DIFF FLAG NO
[2023-01-21 12:44] LABS: Basophils Absolute Auto 0.1 X10*3/uL (0.0-0.2); Basophils Percent Auto 0.9 % (0-2); Eosinophils Absolute Auto 0.2 X10*3/uL (0.0-0.4); Eosinophils Percent Auto 2.6 % (0-4); Hematocrit 38.9 % (37.0-47.0); Hemoglobin 12.6 g/dl (12.0-16.0); Imm Gran Abs Auto 0.02 X10*3/uL (0.00-0.03); Imm Gran Pct Auto 0.3 % (0.0-0.4); Lymphocytes Percent Auto 29.5 % (20-40); Mean Corpuscular HGB Conc 32.4 g/dl (31.0-35.0); Mean Corpuscular Hemoglobin 28.6 pg (27.0-33.0); Mean Corpuscular Volume 88.4 fL (80.0-98.0); Monocytes Absolute Auto 0.4 X10*3/uL (0.1-1.2); Monocytes Percent Auto 6.1 % (2-11); Neutrophils Absolute Auto 4.2 x10*3/uL (2.0-8.3); Neutrophils Percent Auto 60.6 % (45-73); Platelet Count 270 X10*3/uL (160-400); Red Cell Distribution Width 13.7 % (11.0-16.0); White Blood Count 6.9 X10*3/uL (4.8-10.8)
[2023-01-21 12:51] LABS: Estimated Average Glucose 100 mg/dL; Hemoglobin A1c % 5.1 % (<6.0)
[2023-01-21 13:23] LABS: Anion Gap 14 (12-20); Blood Urea Nitrogen 25 mg/dL (9-16); C Reactive Protein < 0.10 mg/dL (< or = 0.50); Calcium 9.9 mg/dL (8.4-10.2); Carbon Dioxide 27 mmol/L (22-29); Chloride 104 mmol/L (96-108); Cholesterol 195 mg/dL (<200); Estimated Glomerular Filt Rate > 60; Glucose Random 89 mg/dL (60-115); HDL Cholesterol 72 mg/dL (>40); Iron 104 mcg/dL (30-160); LDL Cholesterol Calculated 104 mg/dL (<100); Percent Iron Saturation 34 % (15-50); Potassium 3.9 mmol/L (3.3-5.1); Sodium 141 mmol/L (135-145); Total Iron Binding Capacity 310 mcg/dL (228-428); Triglycerides 96 mg/dL (<150); Unsaturated Iron Binding 206 ug/dL
[2023-01-21 13:39] LABS: Ferritin 314 ng/mL (10-250); Insulin 4 uU/mL (2-29); TSH reflex Free T4 1.08 uIU/mL (0.32-4.0); Vitamin D 25-OH Total 98.3 ng/mL (>30)
[2023-01-21 13:51] LABS: Folate 15.9 ng/mL (> or = 4.0); Vitamin B12 584 pg/mL (200-900)
[2023-01-23 18:32] LABS: Calcium (PTHI) 9.6 mg/dL (8.6-10.4); PTHI 26 pg/mL (16-77)
[2023-01-23 21:29] LABS: Zinc 66 mcg/dL (60-130)
[2023-01-26 17:53] LABS: Vitamin A 68 mcg/dL (38-98)
[2023-01-28 14:18] LABS: Vitamin B1 16 nmol/L (8-30)
== END 2023-01-21 10:19 | disposition home or self-care (01) ==
LOC: HO.LAB 10:18
PROVIDERS: PCP Internal Medicine; Visit Provider Physician Assistant Surgical
DX: E66.9 Obesity, unspecified (principal); Z98.84 Bariatric surgery status; K91.2 Postsurgical malabsorption, not elsewhere classified; Z90.3 Acquired absence of stomach [part of]
CPT/HCPCS: 36415; 80048; 80061; 82306; 82607; 82728; 82746; 83036; 83525; 83540; 83970; 84425; 84443; 84590; 84630; 85025; 86140

== ENCOUNTER → 2023-02-11 09:59 | Outpatient (BNVA) | payer OTHER, SELFPAY | PROVIDERS: PCP Internal Medicine; Visit Provider Dietitian, Registered | DX: Z71.3 Dietary counseling and surveillance (principal); E66.9 Obesity, unspecified; K91.2 Postsurgical malabsorption, not elsewhere classified; Z90.3 Acquired absence of stomach [part of] | CPT/HCPCS: 97803 ==

== ENCOUNTER → 2023-03-04 10:31 | Outpatient (BNVA) | payer OTHER, SELFPAY | PROVIDERS: PCP Internal Medicine; Visit Provider Dietitian, Registered | DX: E66.9 Obesity, unspecified (principal); Z68.35 Body mass index [BMI] 35.0-35.9, adult; Z98.84 Bariatric surgery status; Z90.3 Acquired absence of stomach [part of]; Z71.3 Dietary counseling and surveillance | CPT/HCPCS: 97803 ==

== ENCOUNTER 2024-06-28 09:58 | Outpatient (AMB) | payer OTHER, SELFPAY ==
--- NOTE | 2024-06-28 10:01 | A.OFFVIS_ITS ---
VS Expanded 06/28/24 10:05 BP 112/64 Blood Pressure Location Lt brachial Blood Pressure Position Sitting Pulse 54 Pulse Oximetry 99 Height 5 ft 6 in Weight 179 lb 9.6 oz BMI 29.0 Body Fat % 33.7 Body Fat Mass 60.4 Fat Free Mass 119.0 Visceral Fat Rating 8.0 Body Water % 47.1 Body Water Mass 84.4 Muscle Mass/Score 113.0 Basal Metabolic Rate/Score 1,603 Intake Visit Reasons: (ov) PO LSG 03/21/20 Intake Note: She states that she had blood work and she had it from her PCP. Allergies Iodine and Iodide Containing Produc Allergy (Severe, Verified 06/28/24 10:03) Rash latex Allergy (Intermediate, Verified 06/28/24 10:03) Itching perfume Adverse Reaction (Verified 06/28/24 10:03) Shortness of Breath Medication List - Last Reconciled 06/28/24 by MARCIAL Klein acetaminophen (Tylenol Extra Strength) 1,000 mg (2 x 500 mg) PO Q6H PRN biotin-chromium 2-600 mg-mcg caps PO calcium citrate-vitamin D3 315 mg-5 mcg (200 unit) (Calcium Citrate + D) 1 tab PO DAILY cholecalciferol (vitamin D3) 10 mcg PO DAILY inulin (Fiber Gummies) 2 grams PO DAILY multivitamin 1 tab PO DAILY omega-3 fatty acids (Fish Oil Concentrate) 1,000 mg PO DAILY tirzepatide (weight loss) (Zepbound) 10 mg subcut QWEEK turmeric mg PO vitamin B complex (Vitamins B Complex tablet) 1 tab PO DAILY vitamin E 200 units PO DAILY HPI Comments Details: Patient is a pleasant 53-year-old female who returns to the office today in follow-up. She is approximately 4 years 3 months post sleeve gastrectomy performed by Dr. Mendoza on 03/21/2020. She was last seen in the office 03/04/2023 with a weight of 215 lb and a BMI of 35.2. Weight today is 179.6 lb with a BMI of 29.9. She was recently started on Zepbound proximally eight months ago. She has lost over 40 lb. Additionally, she recently had blood work done revealing healthy stable lipid panel. Vitamin levels were not checked. Taking mvi States her goal is to be more toned meal plan: fairlife rtd 30 gm 3 oz protein and 1/2 c veg pretzels or 1/2 fairlife shake 3-4 oz protein and 3-4 oz veg Drinking 60-80 oz water exercise plan: 3-4 x per week weight training/ walking Any post op complications: none BEATA: never DM: never HTN: never Hyperlipidemia: never GERD:?0-5 scale ??0 = no symptoms ??1 = symptoms noticeable but not bothersome 2 =symptoms bothersome but not daily ? 3 = symptoms bothersome and daily 4 = symptoms affect daily activities 5 = symptoms are incapacitating, unable to do daily activities ? How bad is the heartburn: 0 ? Heartburn while lying down: 0 ? Heartburn when standing up: 0 ? Heartburn after meals: 0 ? Does heartburn change your diet: 0 ? Does heartburn wake you up from sleep: 0 ? Do you have difficulty swallowin ? Do you have pain with swallowin ? 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 Sister Multiple sclerosis Social History Are you a primary transition of care specialist to a significant other at home: No Do you presently have visiting nurse or other home services: No Alcohol intake: current Alcohol intake frequency: a few times a month Patient Tobacco Use Status: Never used Tobacco service: No Current occupational status: employed Physical Exam Vital Signs: Last Vital Signs Pulse 54 06/28/24 10:05 BP 112/64 06/28/24 10:05 Pulse Ox 99 06/28/24 10:05 BMI result Body Mass Index 29.0 Const General: healthy appearing and no acute distress Resp Effort & Inspection: normal respiratory effort Auscultation: clear to auscultation bilaterally Cardio Rate: regular rate Rhythm: regular rhythm GI Auscultation: normal bowel sounds Extrem General: Yes normal to inspection Assessment & Plan Assessment & Plan (1) S/P laparoscopic sleeve gastrectomy: Code(s): Z98.84 - Bariatric surgery status Category: Surgical Plan: 1/2 fairlife rtd 30 gm 3 oz protein and 1/2 c veg /2 fairlife shake 3 oz protein and 3-4 oz veg Decrease fluid intake in the afternoon and evening to decrease nocturia. Do weight training then cardio at the gym for the next 3 months then flip to do cardio 1st then weight training. Her goal is to tone and build more muscle. Patient recently had lab data showing stable lipid panel. She does not wish to get vitamin levels checked at this time. Overall, she is very satisfied with her health and how she is doing.
[2024-06-28 10:05] VITALS: BP 112/64; PULSE 54; O2SAT 99; BMI 29.0
--- OUTSIDE RECORDS SUMMARY | 2024-06-28 11:40 | XMS_ITS | Encounter Summary ---
Author Organization [facility] Address [address] [place] [address] Care Team Providers Care Plexiglas Former Name Role Phone Rajiv Floyd MD Unavailable Rajiv Floyd MD Primary Care Provider Fanny Cook RN Unavailable Buzz Parker MD Unavailable Mirna Mcdonough MD Unavailable Stephanie Edmondson MD Unavailable Catarina Chavira MD Unavailable [phone] Chinyere Rueda MD Primary Care Provider Rajiv Floyd MD Primary Care Provider Niko Cline MD Primary Care Provider Encounter Details Date Type Department Care Team (Late st Contact Info) Description 08/21/2020 Telephone [facility] Cancer [place] [facility] at [facility] [address] [place] [address] Mirna Mcdonough MD [address] [place] [address] Social History Tobacco Use Types Packs/Day Years Used Date Smoking Tobacco: Never Smokeless Tobacco: Never Alcohol Use Standard Drinks/Week Comments Yes 0 (1 standard drink = 0.6 oz pur e alcohol) 2 drinks onweekends AUDIT-C Answer Date Recorded Frequency of Alcohol Consumption 2-4 times a thu01/06/2018 Average Number of Drinks 3 or 4 018 Frequency of Binge Drinking Less than monthly Overall Financial Resource Strain (CARDIA) Answe r Date Recorded Difficulty of Paying Living Expenses Not hard at all 07/07/2018 [facility] - Occupational Stress Questionnaire Answer Date Recorded Feeling of Stress To some extent 01/06/2018 Hunger Vital Sign Answer Date Recorded Worried About Running Out of Food in the Last Ye ar Never true 07/07/2018 Ran Out of Food in the Last Year Never true 07/07/2018 PRAPARE - Transportation Answer Date Re corded Lack of Transportation (Medical) No 07/07/2018 Lack of Transportation (Non-Medical) No 07/07/2018 Sex and Gender Information Value Date Recorded Sex Assigned at Not on file Gender Identity Not on file Sexual Orientation Not on file documented as of this encounter Plan of Treatment Upcoming Encounters Date Type Department Care Team (Late st Contact Info) Description 02/15/2025 9:30 AM EST Office Visit [facility] Breast Care & Surgery [address] [phone] La Espinoza, ANGELA [address] [place] [address] documented as of this encounter Visit Diagnoses Not on filedocumented in this encounter Care Teams Plexiglas Former Relationship Specialty Start Date End Date Rajiv Floyd MD [address] [place] [address] PCP - General Internal Medicine 10/27/16 12/15/21 Chinyere Rueda MD [address] [address] PCP - General Obstetrics and Gynecology 12/16/21 07/29/22 Rajiv Floyd MD [address] [place] [address] PCP - General Internal Medicine 07/30/22 02/09/24 Niko Cline MD [address] [facility] [address] [place] [address] PCP - General Family Medicine 02/10/24 Rajiv Floyd MD [address] [place] [address] Consulting Provider Internal Medicine 10/27/16 07/29/22 Fanny Cook, SADIE [address] [place] [address] Oncology Nurse Navigator 11/03/16 01/04/21 Buzz Parker MD [address] [place] [address] OBGYN Obstetrics and Gynecology 12/23/17 Mirna Mcdonough MD [address] [place] [address] Hematology Oncology 12/23/17 07/02/21 Stephanie Edmondson MD [address] [place] [address] Hematology Oncology 07/03/21 Catarina Chavira MD [address] [place] [address] Surgery, Breast 07/03/21 documented as of this encounter
--- OUTSIDE RECORDS SUMMARY | 2024-06-28 11:41 | XMS_ITS | Clinical Summary ---
Author Organization [facility] Address [address] [place] [address] Care Team Providers Care Physiotherapist'S Assistant Name Role Phone Buzz Parker MD Unavailable Stephanie Edmondson MD Unavailable Catarina Chavira MD Unavailable [phone] Niko Cline MD Primary Care Provider Allergies Active Allergy Reactions Criticality Noted Date Comments Adhesives/Tape Itching Low 11/04/2016 Povidone Iodine Rash/Dermatitis Low 04/11/2020 Latex Itching Low 11/04/2016 Medications Medication Sig Dispensed Refills Start Date End Date Status omega-3 fatty acids (FISH OIL) 1000 MG Cap capsule Take 1 capsule (1,000 mg total) by mouth daily. Active vitamin E 100 UNIT capsule Take 1 capsule (100 Units total) by mouth daily. Active Vitamin D3 (CHOLECALICEROL) 2000 units tablet Take 1 tablet (2,000 Units total) by mouth daily. Active cetirizine (ZyrTEC) 5 MG tablet Take 1 tablet (5 mg total) by mouth as needed for allergies. Active Biotin 3 MG Tab Take 1 tablet by mouth daily. Active Cyanocobalamin (VITAMIN B12 PO) Take by mouth. Acti ve lidocaine (LIDODERM) 5 % patch 01/18/2019 Active MAGNESIUM PO Take 400 mg by mouth. A ctive saccharomyces boulardii (FLORASTOR) 250 MG capsule Take 1 capsule (250 mg total) by mouth 2 (two) times a day. Active acetaminophen (TYLENOL) 325 MG tablet Take 2 tablets (650 mg total) by mouth 4 times daily (every 6 hours) as needed for mild pain. Active calcium carbonate-vitamin D (OSCAL) 500 mg-200 unit Tab tablet Take 1 tablet by mouth every morning with breakfast. Unsure of dose Active FIBER ADULT GUMMIES PO Take by mouth. Active clindamycin (CLEOCIN) 2 % vaginal cream INSERT 1 APPLICATOR(S)FUL EVERYNIGHT AT BEDTIME FOR 7 DAYS 04/01/2021 Active SUPPLY DME MISCIndications:Ma lignant neoplasm of upper-outer quadrant of right female breast, unspecified estrogen receptor status (HCC) Compression sleeve and gauntlet 15-20 mmHg 1 each 07/03/2021 Active Turmeric (QC TUMERIC COMPLEX PO) Take by mouth. Active Zepbound 10 MG/0.5ML pen-injector 10 MG SUBCUTANEOUSLY ONCE WEEKLY 01/06/2024 Active Glucosamine-Chondr oit-Vit C-Mn (GLUCOSAMINE 1500 COMPLEX PO) Take by mouth. Active dexAMETHasone (DECADRON) 2 MG tabletIndications: Sore throat Take 5 tablets (10 mg total) by mouth once. 5 tablet 03/30/2024 Active Active Problems Problem Noted Date Diagnosed Date Malignant neoplasm of upper- outer quadrant of right female breast 10/27/2016 Abnormal finding on breast imaging 10/27/2016 Encounters Date Type Department Care Team Description 03/30/2024 11:15 AM EST Office Visit [facility] [place] [address] [place] [address] Bret Montes MD Nguyen, Sy V, [place] Nasopharyngitis (Primary Dx); Sore throat 03/30/2024 Travel from Last 3 Months Family History Medical History Relation Name Comments Cancer, other Mother Appendix Colon cancer Mother Cancer, other Paternal Grandmother Intest ional Multiple sclerosis Sister 2 Relation Name Status Comments Father Alive Maternal Grandfather Maternal Grandmother Mother Paternal Grandfather Paternal Grandmother Sister 1 Alive Sister 2 Alive Social History Tobacco Use Types Packs/Day Years Used Date Smoking Tobacco: Never Smokeless Tobacco: Never Tobacco Cessation:Counseling Given: Not Answered Alcohol Use Standard Drinks/Week Comments Yes 0 [...] Living Expenses Not hard at all 07/07/2018 [facility] [place] of Occupat ional Health - Occupational Stress [...] on file Sexual Orientation Not on file Last Filed Vital Signs Vital Sign Reading Time Taken Comments Blood Pressure 97/66 03/30/2024 11:07 AM EST Pulse 84 03/30/2024 11:07 AM EST Temperature 36.9 ??C (98.4 ??F) 03/30/2024 11:[address] Respiratory Rate 16 01/07/2023 9:04 AM EDT Oxygen Saturation 96% 03/30/2024 11:07 AM EST Inhaled Oxygen Concentration - - Weight 88.7 kg (195 lb 9.6 oz) 02/10/2024 9:25 A M EST Height 167 cm (5' 5.75 ) 02/10/2024 9:25 AM EST Body Mass Index 31.81 02/10/2024 9:25 AM EST Plan of Treatment Upcoming Encounters Date Type Department Care Team (Late st Contact Info) Description 02/15/2025 9:30 AM EST Office Visit [facility] Breast Care & Surgery [address] [phone] La Espinoza, VENEER PULLER [address] [facility] [address] [place] [phone] Health Maintenance Due Date Last Done Comments Hepatitis C Virus Screening 1970 COVID-19 Vaccine (#1) 10/12/1975 Pneumococcal Vaccine: Pediat ronal (0-5 Years) and At-Risk Patients (6 to 49 Years) (1 of 2 - PCV) 1976 HIV Screening 10/12/1983 Colonoscopy (Out of Age Range) 1988 DTaP/Tdap/Td Vaccines (1 - Tdap) 1989 Hepatitis B Vaccines (1 of 3 - 19+ 3-dose series) 1989 Pneumococcal Vaccines 50+ (1 of 2 - PCV) 1989 Zoster (Shingles) Vaccine (1 of 2) 1989 Influenza Vaccine 11/05/2023 Mammogram 12/10/2025 12/11/2023, 11/06, 11/28/2021, Additional history exists Pap Smear (Ages 21-65) 01/17/2027 , 12/01/2022, 03/25/2021, Additional history exists Medical Devices Implanted Type Area Lumber Cutter Device Identifier Shelf Expiration Date Model / Serial / Lot Marker Fiducial 2x2cm Soft Tissue Biozorb Lp Bioabsorbable - [id number] Implanted:Qty: 1 on 11/06/2016 by Catarina Chavira MD at [facility] Breast Right: Breast [employer] 11/03/2018 [id number] / / [id number] Description:1cmH x 3cmL x 2c mW Procedures Procedure Name Priority Date/Time Associated Diagnosis Comments POCT RAPID COVID-19 AG (FDA EUA) Routine 03/30/2024 11:39 AM EST Sore throat POCT RAPID STREP A Routine 03/30/2024 11 :38 AM EST Sore throat THINPREP PAP TEST (PEDIATRIC NURSE) WITH HPV REFLEX Routine 01/18/2024 12:00 AM EDT MM MAMMO SCREENING W/ TOMOSYNTHESIS BILATERAL Routine 12/11/2023 1:58 PM EDT Malignant neoplasm of upper-outer quadrant of right female breast, unspecified estrogen receptor status (HCC) from Last 3 Months or Most Recently Relevant to Health Maintenance Results * POCT Rapid COVID-19 Antigen (FDA EUA) (03/30/2024 11:39 AM EST) COVID-19 Rapid Antigen, POC (FDA EUA) Negative Result Comments: A Positive Result does not rule out bacterial infection or co-infection with other viruses. Clinical correlation advised. A Negative Result in symptomatic patients should be considered presumptive and needs confirmation by PCR. Kit Lot Number 1 Linoleum Tile Floor Layer Pass Pass Swab, Nasal Specimen from nose / Unknown 03/30/2024 11:39 AM EST MARCIAL Stevenson POINT OF CARE TEST O RDERABLES * POCT Rapid Strep A (03/30/2024 11:38 AM EST) Rapid Strep A Screen Negative Negative Lot Number [id number] Linoleum Tile Floor Layer Pass Pass Throat 03/30/2024 11:3 8 AM EST MARCIAL Stevenson POINT OF CARE TEST O RDERABLES * ThinPrep Pap Test (Nematologist) with HPV Reflex (01/18/2024 12:00 AM EDT) Clinical Information DEDRA I Do Now I Don'tMarianna GRAY Comment:S/P TAHBSO (BLEEDING ) BUT HX OF CI LMP: DEDRA DIAGNOSTICSMarianna GRAY Comment:NONE GIVEN Previous PAP: DEDRA DIAGNOSTICSMarianna GRAY Comment:NONE GIVEN Previous Biopsy QUES T DIAGNOSTICSMarianna GRAY Comment:NONE GIVEN Source: DEDRA DIAGNOSTICSMarianna GRAY Comment:Vagina Statement of Adequacy: DEDRA DIAGNOSTICSMarianna GRAY Comment:SATISFACTORY FOR VEENA LUATION Interpretation/Resul t: DEDRA DIAGNOSTICS-Ifeoma GRAY Comment: Cytology Results: Negative for intraepithelial lesion or malignancy. Atrophic pattern; predominantly parabasal cells Comment: DEDRA DIAGNOSTICSMarianna GRAY Comment: This Pap test has been evaluated with computer assisted technology. Glove Former: MARTELL GRAY Comment: LLT, CT(ASCP) CT screening location: ??[employer] [facility], [address] [place] [id number] Slide preparation performed at: [employer] [address] CLIA No. ??[id number] Review Glove Former: DEDRA GRAY Comment: EMP, CT(ASCP) CT screening location: ??[employer] [facility] [place], [address] [place] [address] Slide preparation performed at: [employer], [address] [place] [id number] CLIA No. ??[id number] Comment DEDRA GRAY Comment: EXPLANATORY NOTE: The Pap is a screening test for cervical cancer. It is not a diagnostic test and is subject to false negative and false positive results. It is most reliable when a satisfactory sample, regularly obtained, is submitted with relevant clinical findings and history, and when the Pap result is evaluated along with historic and current clinical information. 01/18/2024 01/19/2024 8:5 4 PM EDT Narrative [facility] - 01/26/2024 7:43 AM EDT [id number] NG; S/P TAHBSO (BLEEDING) BUT HX OF KASHMIR 1 IN 20 Tena Everett MD LAB AMB PATH[place] [address], * MM Breast tomosynthesis screening-Bilateral (12/11/2023 1:58 PM EDT) Anatomical Region Laterality Modality Breast Bilateral Mammography 12/11/2023 12:4 5 PM EDT 12/11/2023 12:45 PM EDT Impressions 01/06/2024 1:38 PM EDT There is no mammographic evidence of malignancy. OVERALL ASSESSMENT: BI-RADS 2: Benign. RECOMMENDATION: Routine annual screening mammography. The patient will receive a lay summary of the results of this breast imaging exam. Lay summaries for mammography examinations will also identify the patients personal breast tissue composition as required by state law. Electronically signed by: ??Janet Arredondo MD ??01/06/2024 01:38 PM EDT Thank you for referring your patient to us, Janet Arredondo MD [phone] (Electronically Signed - 01/06/2024 13:38) Copy: NIKO CLINE MD [address] [place] [address] PATIENT , ?? Narrative 01/06/2024 1:38 PM EDT EXAMINATION: MM SCREENING WITH TOMOSYNTHESIS, BILATERAL CLINICAL INFORMATION: Routine annual screening mammography. COMPARISON: Previous studies TECHNIQUE: Examination was performed using full breast technique. Standard CC and MLO views of the bilateral breasts were obtained. Tomosynthesis views of the bilateral breasts were obtained at 1 mm increments. Computer-aided detection was utilized by the radiologist in the interpretation of this exam. FINDINGS: The breasts are almost entirely fatty. (ACR BI-RADS breast composition Category a)*. No significant masses, calcifications, or other findings are seen in either breast. ?? Procedure Note Janet Arredondo MD - 01/06/2024 EXAMINATION: MM SCREENING WITH TOMOSYNTHESIS, BILATERAL CLINICAL INFORMATION: Routine annual screening mammography. COMPARISON: Previous studies TECHNIQUE: Examination was performed using full breast technique. Standard CC and MLOviews of the bilateral breasts were obtained. Tomosynthesis views of thebilateral breasts were obtained at 1 mm increments. Computer-aideddetection was utilized by the radiologist in the interpretation of this exam. FINDINGS: The breasts are almost entirely fatty. (ACR BI-RADS breast compositionCategory a)*. No significant masses, calcifications, or other findings are seen ineither breast. IMPRESSION: There is no mammographic evidence of malignancy. OVERALL ASSESSMENT: BI-RADS 2: Benign. RECOMMENDATION: Routine annual screening mammography. The patient will receive a lay summary of the results of this breastimaging exam. Lay summaries for mammography examinations will alsoidentify the patients personal breast tissue composition as required [facility] law. Electronically signed by: Janet Arredondo MD 01/06/2024 01:38 PM EDT RPWorkstation: [id number] Thank you for referring your patient to us, Janet Arredondo MD [phone] (Electronically Signed - 01/06/2024 13:38) Copy: NIKO CLINE [address] [place] [address] PATIENT , Catarina Chavira MD IMG MAMMOGRAPHY GERRI KAYLAN from Last 3 Months or Most Recently Relevant to Health Maintenance Advance Directives * Full Code (Latest Code Status on File) Date Activated Date Inactivated Comments 11/06/2016 8:01 AM 11/06/2016 8:39 AM Care Teams Physiotherapist'S Assistant Relationship Specialty Start Date End Date Niko Cline MD [address] [place] [address] Dr Sanchez [address] [place] [address] PCP - General Family Medicine 02/10/24 Buzz Parker MD OBGYN Obstetrics and Gynecology 12/23/17 Stephanie Edmondson MD [address] [place] [address] Hematology Oncology 07/03/21 Catarina Chavira MD [address] [facility] [address] [place] [address] Surgery, Breast 07/03/21
--- OUTSIDE RECORDS SUMMARY | 2024-06-28 11:41 | XMS_ITS | Encounter Summary ---
Author Organization [facility] Address [address] [place] [address] Care Team Providers Care Event Mgr Name Role Phone Rajiv Floyd MD Unavailable Rajiv Floyd MD Primary Care Provider [phone] Fanny Cook RN Unavailable Buzz Parker MD Unavailable Mirna Mcdonough MD Unavailable Stephanie Edmondson MD Unavailable Catarina Chavira MD Unavailable [phone] Chinyere Rueda MD Primary Care Provider Rajiv Floyd MD Primary Care Provider Niko Cline MD Primary Care Provider Encounter Details Date Type Department Care Team (Late st Contact Info) Description 09/08/2018 Telephone [facility] Cancer [place] [facility] at [facility] [address] [place] [address] Mirna Mcdonough MD [address] [place] [address] Social History Tobacco Use Types Packs/Day Years [...] Living Expenses Not hard at all 07/07/2018 [facility] of Occupat ional Health - Occupational Stress [...] Description 02/15/2025 9:30 AM EST Office Visit [facility] Breast Care & Surgery [address] [phone] La Espinoza APRN [address] [place] [address] documented as of this encounter Visit Diagnoses Not on filedocumented in this encounter Care Teams Event Mgr Relationship Specialty Start Date End Date Rajiv Floyd MD [address] [place] [address] PCP - General Internal Medicine 10/27/16 12/15/21 Chinyere Rueda MD [address] [address] PCP - General Obstetrics and Gynecology 12/16/21 07/29/22 Rajiv Floyd MD [address] [place] [address] PCP - General Internal Medicine 07/30/22 02/09/24 Niko Cline MD [address] [facility] 5 [place] [address] PCP - General Family Medicine 02/10/24 Rajiv Floyd MD [address] [place] [address] Consulting Provider Internal Medicine 10/27/16 07/29/22 Fanny Cook RN [address] [place] [address] Oncology Nurse Navigator 11/03/16 01/04/21 Buzz Parker MD [address] [place] [address] OBGYN Obstetrics and Gynecology 12/23/17 Mirna Mcdonough MD [address] [place] [address] Hematology Oncology 12/23/17 07/02/21 Stephanie Edmondson MD [address] [place] [address] Hematology Oncology 07/03/21 Catarina Chavira MD [address] [place] [address] [place] [address] Surgery, Breast 07/03/21 documented as of this encounter
--- OUTSIDE RECORDS SUMMARY | 2024-06-28 11:41 | XMS_ITS | Clinical Summary ---
Author Organization [facility] Address [address] [place] [address] Care Team Providers Care Supervisor Locomotive Name Role Phone Rajiv Floyd MD Primary Care Provider Unava ilable Allergies Active Allergy Reactions Criticality Noted Date Comments Iodine Itching,Rash,Swelling Low 03/06/2020 Latex Itching 01/28/2017 Other Swelling High 10/24/2020 Povidone Iodine Rash Low 04/11/2020 Tape Itching Low 11/04/2016 Medications Medication Sig Dispensed Refills Start Date End Date Status tamoxifen (NOLVADEX) 20 MG tablet TAKE 1 TABLET EVERY DAY 3 01/19/2017 Active vitamin E 400 UNIT capsule Take 1 capsule (400 Units total) by mouth daily. 0 Active cholecalciferol (VITAMIN D3) 1000 UNITS tablet Take 1 tablet (1,000 Units total) by mouth daily. 0 Active Pall Mall-3 Fatty Acids (FISH OIL PO) Take 1 tablet by mouth daily. 0 Active BIOTIN PO Take 1 tablet by mouth daily. 0 Active cetirizine (ZYRTEC) 10 MG tablet Take 1 tablet (10 mg total) by mouth as needed. 0 Active vitamin B-6 (PYRIDOXINE) 25 MG tablet Take 25 mg by mouth daily. 0 Active Magnesium 400 MG CAPS Take 400 mg by mouth daily. 0 Active Probiotic Product (PROBIOTIC ADVANCED PO) Take by mouth daily. 0 Active ibuprofen (ADVIL,MOTRIN) 800 MG tablet Take 800 mg by mouth every 6 (six) hours as needed for pain. Stopped 5 days prior to procedure per Md instruction 0 Active acetaminophen (TYLENOL) 325 MG tablet Take 2 tablets (650 mg total) by mouth every 6 (six) hours as needed for pain. 0 Active predniSONE (DELTASONE) 5 mg tablet Take 2 tablets by mouth 2 (two) times a day. 0 06/25/2019 Active saccharomyces boulardii (FLORASTOR) 250 MG capsule Take 250 mg by mouth. 0 Active phentermine (ADIPEX-P) 37.5 MG tablet Take 37.5 mg by mouth daily. 0 05/30/2019 Active phentermine (ADIPEX-P) 37.5 MG tablet Take 1 tablet (37.5 mg total) by mouth. 0 04/28/2018 Active oxybutynin (DITROPAN-XL) 10 MG 24 hr tablet oxybutynin chloride ER 10 mg tablet,extended release 24 hr 0 10/20/2018 Active metroNIDAZOLE (METROGEL) 0.75 % vaginal gel 0 01/13/2019 Active lidocaine (LIDODERM) 5 % 0 06/23/2019 Active fluticasone (FLONASE) 50 MCG/ACT nasal spray 0 05/06/2019 Activ e fluconazole (DIFLUCAN) 100 MG tablet TAKE 1 TAB BY MOUTH EVERY 72 HOURS 0 06/17/2019 Active cyclobenzaprine (FLEXERIL) 10 MG tablet 0 12/11/2017 Active clindamycin (CLEOCIN) 2 % vaginal cream INSERT 1 APPLICATOR(S)FUL TWICE A WEEK BY VAGINAL ROUTE FOR 30 DAYS. 0 06/17/2019 Active Cholecalciferol (VITAMIN D) 10 MCG/ML LIQD Vitamin D 0 Active Pall Mall-3 Fatty Acids (FISH OIL) 1000 MG CAPS Fish Oil 0 Active cyanocobalamin 1000 MCG tablet Take by mouth. 0 Active CLINDAMYCIN-BENZOYL PER-CLEANS EX clindamycin 2 % vaginal cream 0 03/01/2019 Active gabapentin (NEURONTIN) 300 MG capsuleIndications: Lumbar degenerative disc disease,Lumbar radiculopathy Take 2 capsules (600 mg total) by mouth 3 (three) times a day. 180 capsule 0 01/16/2020 Active FIBER ADULT GUMMIES PO Take by mouth. 0 Active Multiple Vitamins-Minerals (Multivitamin Adult) CHEW multivitamin 0 Active Turmeric 500 MG CAPS Take by mouth. 0 Active Calcium Carbonate-Vitamin D (Oyster Shell Calcium/D) 500-5 MG-MCG TABS Take 1 tablet by mouth. 0 Active Active Problems Problem Noted Date Diagnosed Date Lumbar radiculopathy 06/08/2019 Right hip pain 11/10/2017 Chronic right-sided low back pain with right-ike ed sciatica 11/10/2017 Greater trochanteric bursitis, right 11/10/2017 Family History Medical History Relation Name Comments Diabetes Father Colon cancer Mother Multiple sclerosis Sister Relation Name Status Comments Father Mother Sister Social History Tobacco Use Types Packs/Day Years Used Date Smoking Tobacco: Never Smokeless Tobacco: Never Alcohol Use Standard Drinks/Week Comments Yes 0 (1 standard drink = 0.6 oz pur e alcohol) socially Sex and Gender Information Value Date Recorded Sex Assigned at Female 04/01/2019 2:07 PM EST Gender Identity Not on file Sexual Orientation Not on file Job Start Date Occupation Industry Not on file Not on file Not on file Last Filed Vital Signs Vital Sign Reading Time Taken Comments Blood Pressure 107/69 06/08/2019 10:45 AM EST Pulse 64 06/08/2019 10:45 AM EST Temperature 36.9 ??C (98.5 ??F) 06/08/2019 9:50 AM ES T Respiratory Rate 14 06/08/2019 10:45 AM EST Oxygen Saturation 95% 06/08/2019 10:45 AM EST Inhaled Oxygen Concentration - - Weight 100 kg (220 lb 8 oz) 06/11/2022 9:[address] Height 167.6 cm (5' 6 ) 06/11/2022 9:36 AM EST Body Mass Index 35.59 06/11/2022 9:36 AM EST Plan of Treatment Health Maintenance Due Date Last Done Comments Hepatitis B Vaccines (1 of 3 - 3-dose series) 1970 Hepatitis C Screening 1970 COVID-19 Vaccine (#1) 04/13/1971 Depression Screening 1982 Preventative Health Evaluation 1988 DTap / Tdap / Td (1 - Tdap) 1989 Cervical Cancer Screening (Pap Smear) 10/12/1991 Colon Cancer Screening (Colonoscopy) 10/12/2015 BMI Counseling 04/29/2020 04/29/2019, 03/07, 01/26/2019, Additional history exists Breast Cancer Screening (Mammogram) 2020 Shingrix-Zoster Vaccine (1 of 2) 2020 Influenza Vaccine (#1) 2023 Pneumococcal Vaccine Aged Out No long er eligible based on patient's age to complete this topic RSV Ped < 20 months Aged Out No longe r eligible based on patient's age to complete this topic Advance Directives For more information, please contact: [phone] Documents on File Type Date Recorded Patient Sort Worker Expl anation Advance Directive and Living Will 12/20/2019 2:09 PM Care Teams Supervisor Locomotive Relationship Specialty Start Date End Date Rajiv Floyd MD PCP - General Internal Medicine 02/04/17
--- OUTSIDE RECORDS SUMMARY | 2024-06-28 11:41 | XMS_ITS | Encounter Summary ---
Author Organization [facility] Address [address] [place] [address] Care Team Providers Care Kiln Furniture Saw Tender Name Role Phone Rajiv Floyd MD Unavailable [phone] Rajiv Floyd MD Primary Care Provider Fanny Cook RN Unavailable Buzz Parker MD Unavailable Mirna Mcdonough MD Unavailable Stephanie Edmondson MD Unavailable Catarina Chavira MD Unavailable [phone] Chinyere Rueda MD Primary Care Provider Rajiv lFoyd MD Primary Care Provider Niko Cline MD Primary Care Provider Encounter Details Date Type Department Care Team (Late st Contact Info) Description 09/09/2018 Telephone [facility] [place] [facility] [address] [place] [address] Mirna Mcdonough MD [address] [place] [address] Social History Tobacco Use Types Packs/Day Years [...] Living Expenses Not hard at all 07/07/2018 [facility] - [...] on file documented as of this encounter Miscellaneous Notes * Telephone Encounter - Lacy Valdes RN - 09/09/2018 5:36 PM EDT Pt calling again for answer concerning use of estrogen. Called pt went to her left message again that MD has not gotten back to me concerning this issue. Explained estrogen use is not used with breast ca that we need the answer from the MD. Told her I would call tomorrow documented in this encounter Plan of Treatment Upcoming Encounters Date Type Department Care Team (Late st Contact Info) Description 02/15/2025 9:30 AM EST Office Visit [facility] Breast [facility] & Surgery [address] [phone] La Espinoza APRN [address] [facility] [address] [place] [phone] documented as of this encounter Visit Diagnoses Not on filedocumented in this encounter Care Teams Kiln Furniture Saw Tender Relationship Specialty Start Date End Date Rajiv Floyd MD [address] [place] [address] PCP - General Internal Medicine 10/27/16 12/15/21 Chinyere Rueda MD [address] [facility] [address] [place] [address] PCP - General Obstetrics and Gynecology 12/16/21 07/29/22 Rajiv Floyd MD [address] [place] [address] PCP - General Internal Medicine 07/30/22 02/09/24 Niko Cline MD [address] [facility] [address] [place] [address] PCP - General Family Medicine 02/10/24 Rajiv Floyd MD [address] [place] [address] Consulting Provider Internal Medicine 10/27/16 07/29/22 Fanny Cook, SADIE [address] [place] [address] Oncology Nurse Navigator 11/03/16 01/04/21 Buzz Parker MD [address] [place] [address] OBGYN Obstetrics and Gynecology 12/23/17 Mirna Mcdonough MD [address] [place] [address] Hematology Oncology 12/23/17 07/02/21 Stephanie Edmondson MD [address] [place] [address] Hematology Oncology 07/03/21 Catarina Chavira MD [address] [place] [address] Surgery, Breast 07/03/21 documented as of this encounter
--- OUTSIDE RECORDS SUMMARY | 2024-06-28 11:41 | XMS_ITS | Encounter Summary ---
Author Organization [facility] Address [address] [place] [address] Care Team Providers Care Soil Engineer Name Role Phone Rajiv Floyd MD Unavailable Rajiv Floyd MD Primary Care Provider Fanny Cook RN Unavailable Buzz Parker MD Unavailable Mirna Mcdonough MD Unavailable Stephanie Edmondson MD Unavailable Catarina Chavira MD Unavailable [phone] Chinyere Rueda MD Primary Care Provider Rajiv Floyd MD Primary Care Provider Niko Cline MD Primary Care Provider Encounter Details Date Type Department Care Team (Late st Contact Info) Description 11/26/2016 Scanned Document [facility] Cancer [place] [facility] Brit Sanchez [address] [place] [address] Mirna Mcdonough MD [address] [place], [place] [id number] Social History Tobacco Use Types Packs/Day Years Used Date Smoking Tobacco: Never Smokeless Tobacco: Never Alcohol Use Standard Drinks/Week Comments Yes 0 (1 standard drink = 0.6 oz pur e alcohol) 2 drinks onweekends Sex and Gender Information Value Date Recorded Sex Assigned at Not on file Gender Identity Not on file Sexual Orientation Not on file documented as of this encounter Plan of Treatment Upcoming Encounters Date Type Department Care Team (Late st Contact Info) Description 02/15/2025 9:30 AM EST Office Visit [facility] [address] [phone] La Espionza, PRODUCT DEVELOPER [address] [place], [place] [phone] documented as of this encounter Visit Diagnoses Not on filedocumented in this encounter Care Teams Soil Engineer Relationship Specialty Start Date End Date Rajiv Floyd MD [address] [place] [address] PCP - General Internal Medicine 10/27/16 12/15/21 Chinyere Rueda MD [address] [address] PCP - General Obstetrics and Gynecology 12/16/21 07/29/22 Rajiv Floyd MD [address] [place] [address] PCP - General Internal Medicine 07/30/22 02/09/24 Niko Cline MD 15 [facility] [address] [place] [address] PCP - General Family Medicine 02/10/24 Rajiv Floyd MD [address] [place] [address] Consulting Provider Internal Medicine 10/27/16 07/29/22 Fanny Cook, SADIE [address] [place] [phone] Oncology Nurse Navigator 11/03/16 01/04/21 Buzz Parker MD [address] [place] [address] OBGYN Obstetrics and Gynecology 12/23/17 Mirna Mcdonough MD [address] [place] [address] Hematology Oncology 12/23/17 07/02/21 Stephanie Edmondson MD [address] [place] [address] Hematology Oncology 07/03/21 Catarina Chavira MD [address] [place] [address] [address] [place] [phone] Surgery, Breast 07/03/21 documented as of this encounter
--- OUTSIDE RECORDS SUMMARY | 2024-06-28 11:41 | XMS_ITS | Data Portability ---
Author Organization [place] - [facility]'s [facility], [facility] Address [id number] [place] [address] Care Team Providers Care Sql Report Analyst Name Role Phone ROHIT RIVERA Primary Care Provider Assessment No assessment recorded. Plan of Treatment Reminders Order Date Submit Date Provider Last Modified By Organization Details Last Modified Time Details Appointments None recorded. Lab urinalysis, dipstick 2023 024 In-Office Order, Internal Use Only DO Not Attach Compendium DO Not Attach Compendium, Do Not Delete/merge, [id number] 4 14:50:25 pap, IG + reflex HPV - S/P TAHBSO (bleeding) but hx of KASHMIR 1 in 2023 024 [email or web address] 8 [facility], [address] [place] [address], [address] 4 09:40:10 urinalysis, dipstick 2022 023 In-Office Order, Internal Use Only DO Not Attach Compendium DO Not Attach Compendium, Do Not Delete/merge, [id number] 3 09:09:48 pap, IG + HPV - Hx of KASHMIR 1 in 03/25 023 TATO [facility], [address] [place] [address], [id number] 3 14:04:30 melody wet prep 2021 022 [email or web address] In-Office Order, Internal Use Only DO Not Attach Compendium DO Not Attach Compendium, Do Not Delete/merge, [id number] 2 09:26:27 culture, vaginal, yeast 2021 [facility], [address] [place], [address] 2 11:08:16 melody wet prep 2021 [email or web address] In-Office Order, Internal Use Only DO Not Attach Compendium DO Not Attach Compendium, Do Not Delete/merge, [id number] 13:13:27 melody wet prep 2021 TATO In-Office Order, Internal Use Only DO Not Attach Compendium DO Not Attach Compendium, Do Not Delete/merge, [id number] 16:56:24 Referral None recorded. Procedures None recorded. Surgeries None recorded. Imaging None recorded. Medication Orders Diflucan 100 mg tablet 2021 022 [email or web address] 3 [id number], [address] [place], [address], 3 08:35:34 clindamycin 2 % vaginal cream 2021 [email or web address] 3 [facility], [address] [place], [address], 3 08:35:37 clindamycin 2 % vaginal cream 2021 [email or web address] 3 [facility], [address] [place], [address], 3 08:35:37 Patient TargetsNo targets recorded. Patient Instructions Encounter Date Encounter Id Patient Instructions Last Modified By Organization Details Last Modified Time 10/31/2021 [id number] atrophic vaginitis: care instructions Not available 10/31/2021 16:35:53 atrophy versus D IV versus BV pt will discuss possible use topical estrogen pt will find out if cancer was progesterone and estrogen senstivie trial clindamycin for 7 days [email or web address] Not available 10/31/2021 16:37:14 12/16/2021 [id number] complicated picture trial of clindamycin for 14 days and then suppression trial of diflucan for renato for 14 days and then suppression estrogen cream twice a week f/u 6 weeks [email or web address] Not available 12/16/2021 13:12:52 02/11/2022 [id number] atrophic vaginitis: care instructions [email or web address] Not available 02/11/2022 09:26:28 stop pad use estrace 1 x a week for 6 weeks pt fully aware of risks of this medications wet prep shows no rhianna but mild inflammation will stop estrace after 6 weeks Total Time on date of the encounter: minutes Obtain a patient history and/or review a separately obtained history: __7___ minutes Reviewing patient? s lab/radiology/antoine t results: __3___ minutes Examining the patient: _5____ minutes Discussing Treatment options with patient/family/car egiver: ___5__ minutes Counseling and education of the patient/family/car egiver: __5___ minutes Writing/ordering prescriptions for patient: ___0__ minutes Ordering diagnostic test(s) and/or procedure: minutes Updating/documenti ng clinical information in the patient? s medical record: _5____ minutes Other : minutes [email or web address] Not available 02/11/2022 11:22:23 12/01/2022 [id number] tips to help you stay healthy Not available 12/01/2022 09:09:48 Normal pelvic ex am S/P Hyst/BSO PAP of cuff done due to hx of abnormals (KASHMIR 1 on bx 03/25) Call with results BSE reviewed Hx of right breast ca in ', stopped Tamoxifen in ' Seeing surgeon soon Considering surgery on scar tissue on right Colonoscopy due Maternal hx of colon cancer (mom at 65) BMD per onoclogy RTC annual/prn Not available 12/01/2022 08:54:51 01/18/2024 [id number] tips to help you stay healthy Not available 01/18/2024 14:50:24 Normal pelvic ex am S/P Hyst/BSO (bleeding after ablation) PAP done, pt request (and KASHMIR 1 in ') BSE reviewed Hx of breast ca (RIGHT) in Surgeons order imaging BMD with PCP Colonoscopy done this year, normal Repeat in 5 years (maternal hx of colon ca & Personl hx of breast ca) RTC annual/prn Not available 01/18/2024 14:55:00 Reason for Referral None Reported. Results Created Date Observation Date Name Description Value Unit Range Abnormal Flag Note LastModifiedBy Organization Detail LastModifiedTime 10/04/19 22 10/03/2021 VAGIN ITIS PROFI LE gardnerella negati ve negati ve Not Available [facility] [address] [place] [address], [id number] 10/04/2021 13:51:55 10/04/19 22 10/03/2021 VAGIN ITIS PROFI LE trichomonas negati ve negati ve Not Available [facility] [address] [place] [address], [address] 10/04/2021 13:51:55 10/04/19 22 10/03/2021 VAGIN ITIS PROFI LE renato negati ve negati ve Not Available [facility] [address] [place] [address], [address] 10/04/2021 13:51:55 12/17/19 22 12/25/2021 CULTU RE, YEAST , W/DIR ECT FLUOR ESCEN T MELODY culture, yeast, w/direct fluorescent melody SEE NOTE CULTU RE, YEAST , W/DIR ECT FLUOR ESCEN T MELDOY Micro Numbe r: [id number] Test Statu s: Final Speci men Sourc e: Vagin a Speci men Quali ty: Adequ ate Smear : No funga l eleme nts seen. Resul t: No yeast isola moris Not Available [facility] [address], [place], [address], 12/25/2021 11:08:16 12/17/19 22 12/16/2021 melody wet prep Hyphae Absent Not Available In-Office Order Internal Use Only DO Not Attach Compendium DO Not Attach Compendium, Do Not Delete/merge, [id number] 12/16/2021 13:12:57 12/17/19 22 12/16/2021 melody wet prep Clue Cells Absent Not Available In-Offi ce Order Internal Use Only DO Not Attach Compendium DO Not Attach Compendium, Do Not Delete/merge, [id number] 12/16/2021 13:12:57 12/17/19 22 12/16/2021 melody wet prep Yeast Presen t Not Available In-Office Order Internal Use Only DO Not Attach Compendium DO Not Attach Compendium, Do Not Delete/merge, [id number] 12/16/2021 13:12:57 12/17/19 22 12/16/2021 melody wet prep Other div candid a atroph y Not Available In-Office Order Internal Use Only DO Not Attach Compendium DO Not Attach Compendium, Do Not Delete/merge, [id number] 12/16/2021 13:12:57 02/12/20 22 02/11/2022 melody wet prep Hyphae Absent Not Available In-Office Order Internal Use Only DO Not Attach Compendium DO Not Attach Compendium, Do Not Delete/merge, [id number] 02/11/2022 09:26:03 02/12/20 22 02/11/2022 melody wet prep Clue Cells Absent Not Available In-Offi ce Order Internal Use Only DO Not Attach Compendium DO Not Attach Compendium, Do Not Delete/merge, [id number] 02/11/2022 09:26:03 02/12/20 22 02/11/2022 melody wet prep Yeast Absent Not Available In-Office Order Internal Use Only DO Not Attach Compendium DO Not Attach Compendium, Do Not Delete/merge, [id number] 02/11/2022 09:26:03 02/12/20 22 02/11/2022 melody wet prep Other no nl [email or web address] Not Available In-Office Order Internal Use Only DO Not Attach Compendium DO Not Attach Compendium, Do Not Delete/merge, [id number] 02/11/2022 09:26:03 12/02/19 23 12/01/2022 THINP REP PAP TEST (IMAG ER), HPV SCREE N, REFLE X HPV 16,18 /45 report Report Final Gynec ologi floridalma Cytol ogy Repor t ----- ----- ----- ----- ----- ----- ----- ----- ----- ----- ----- ----- ThinP rep Pap Test, HPV Scree n, Refle x HPV Genot ype SPECI MEN ADEQU ACY: SATIS FACTO RY FOR EVALU ATION . INTER PRETA TION: NEGAT ELIAS FOR INTRA EPITH HOLLIE Badillo OR HEIDI POWELL . Elect bret Ghosh d: Jeff Hampton, MEGHNA (ASCP ) ----- ----- ----- ----- ----- ----- ----- ----- ----- ----- ----- ----- CLINI FLORIDALMA INFOR POLA N: LMP: NG Clini floridalma Histo ry: NG Biops y Date: NG Speci men Sourc e: Vagin al Previ ous Pap Date: NG HPV RESUL TS: HPV mRNA E6/E7 51950 93220 Appro gómez: 12/03 Negat elias REF RANGE : Negat elias CPT Codes : 42665 ICD Codes : Z01.4 19 Not Available [facility] [address] [place], [address] 12/05/2022 14:04:30 12/02/1912/01/2022 HPV MRNA E6/E7 HPV MRNA E6/E7 Negati ve negati ve APTIM A HPV assay detec ts 14 high risk HPV types (HPV 16,18 ,31,3 3,35, 39,45 ,51,5 2,56, 58,59 ,66,6 8). The assay is FDA appro gómez for testi ng ThinP rep liqui d Pap vials but not FDA appro gómez for detec ting HPV in SureP ath liqui d Pap speci mens. In-ho use valid ation has shown the assay can detec t all HPV types from this sourc e Not Available [facility] [address] [place], [address] 12/05/2022 14:04:33 12/02/1912/01/2022 urina lysis , dipst ick Interpretati on negati ve Not Available In-Office Order Internal Use Only DO Not Attach Compendium DO Not Attach Compendium, Do Not Delete/merge, [id number] 12/01/2022 08:35:55 01/18/2001/26/2024 THINP REP TIS PAP W/REF L HPV MRNA E6/E7 clinical information: normal S/P TAHBS O (BLEE MARGUERITE) BUT HX OF CI Not Available [facility] [place] [facility] [address], [address], 01/26/2024 07:53:02 01/18/2001/26/2024 THINP REP TIS PAP W/REF L HPV MRNA E6/E7 LMP: normal NONE GIVEN Not Available [facility] [address], [address], 01/26/2024 07:53:02 01/18/2001/26/2024 THINP REP TIS PAP W/REF L HPV MRNA E6/E7 prev. Pap: normal NONE GIVEN Not Available [facility] [address], [address], 01/26/2024 07:53:02 01/18/2001/26/2024 THINP REP TIS PAP W/REF L HPV MRNA E6/E7 prev. BX: normal NONE GIVEN Not Available [facility] [address], [address], 01/26/2024 07:53:02 01/18/2001/26/2024 THINP REP TIS PAP W/REF L HPV MRNA E6/E7 source: normal Vagin a Not Available [facility]- [address], [address], 01/26/2024 07:53:02 01/18/2001/26/2024 THINP REP TIS PAP W/REF L HPV MRNA E6/E7 statement of adequacy: normal SATIS FACTO RY FOR EVALU ATION Not Available [facility] [address], [address], 01/26/2024 07:53:02 01/18/2001/26/2024 THINP REP TIS PAP W/REF L HPV MRNA E6/E7 interpretati on/result: Cytol ogy Resul ts: Negat elias for intra epith elial lesio n or malig damaris . Atrop leroy watters rn; predo inderjit nolasco parab celeste cells Not Available [facility] [address], [address], 01/26/2024 07:53:02 01/18/2001/26/2024 THINP REP TIS PAP W/REF L HPV MRNA E6/E7 comment: normal This Pap test has been evalu ated with compu ter maged moris techn ology . Not Available [facility] [address], [address], 01/26/2024 07:53:02 01/18/2001/26/2024 THINP REP TIS PAP W/REF L HPV MRNA E6/E7 cytotechnolo gist: normal LLT, CT( CP) [facility] scree [facility]at [facility] [address] [place] [address], [place] [address] Slide prepa ratio n perfo rmed at: [facility], [address] [facility] [place] [address] CLIA No. [id number] Not Available [facility] [address], [address], 01/26/2024 07:53:02 01/18/2001/26/2024 THINP REP TIS PAP W/REF L HPV MRNA E6/E7 review cytotechnolo gist: normal EMP, CT( CP) CT scree efrem locat ion: [facility], [facility] , [address] [facility], [place] [address] Slide prepa ratio n perfo rmed at: [facility], [address] [place] [address] CLIA No. [id number] Not Available [facility] [place] [facility] [address] [place], [place], [address], 01/26/2024 07:53:02 01/18/2001/26/2024 THINP REP TIS PAP W/REF L HPV MRNA E6/E7 comment EXPLA NATOR Y NOTE: The Pap is a scree efrem test for cervi floridalma cance r. It is not a diagn ostic test and is subje ct to false negat elias and false posit elias resul ts. It is most relia ble when a satis facto ry sampl e, regul anneliese obtai unique, is submi tted with relev ant clini floridalma findi ngs and histo ry, and when the Pap resul t is evalu ated along with histo ronal and curre nt clini floridalma infor matio n. Not Available [facility] [place] [facility] [address] [place], [place], [address], 01/26/2024 07:53:02 01/18/2001/18/2024 urina lysis , dipst ick Interpretati on negati ve Not Available In-Office Order Internal Use Only DO Not Attach Compendium DO Not Attach Compendium, Do Not Delete/merge, [id number] 01/18/2024 14:36:21 01/18/2001/18/2024 urina lysis , dipst ick Leukocytes Negati ve Not Available In-Office Order Internal Use Only DO Not Attach Compendium DO Not Attach Compendium, Do Not Delete/merge, [id number] 01/18/2024 14:36:21 01/18/2001/18/2024 urina lysis , dipst ick Nitrite negati ve Not Available In-Office Order Internal Use Only DO Not Attach Compendium DO Not Attach Compendium, Do Not Delete/merge, [id number] 01/18/2024 14:36:21 01/18/20 24 01/18/2024 urina lysis , dipst ick Urobilinogen Normal : 0.2 mg/dl Not Available In-Office Order Internal Use Only DO Not Attach Compendium DO Not Attach Compendium, Do Not Delete/merge, [id number] 01/18/2024 14:36:21 01/18/20 24 01/18/2024 urina lysis , dipst ick Protein Negati ve Not Available In-Office Order Internal Use Only DO Not Attach Compendium DO Not Attach Compendium, Do Not Delete/merge, [id number] 01/18/2024 14:36:21 01/18/20 24 01/18/2024 urina lysis , dipst ick pH 7.0 Not Available In-Office Order Internal Use Only DO Not Attach Compendium DO Not Attach Compendium, Do Not Delete/merge, 01/18/2024 14:36:21 01/18/20 24 01/18/2024 urina lysis , dipst ick Blood Negati ve Not Available In-Office Order Internal Use Only DO Not Attach Compendium DO Not Attach Compendium, Do Not Delete/merge, [id number] 01/18/2024 14:36:21 01/18/20 24 01/18/2024 urina lysis , dipst ick Specific Morven 1.005 Not Available In-Off ice Order Internal Use Only DO Not Attach Compendium DO Not Attach Compendium, Do Not Delete/merge, 01/18/2024 14:36:21 01/18/20 24 01/18/2024 urina lysis , dipst ick Ketone Negati ve Not Available In-Office Order Internal Use Only DO Not Attach Compendium DO Not Attach Compendium, Do Not Delete/merge, [id number] 01/18/2024 14:36:21 01/18/20 24 01/18/2024 urina lysis , dipst ick Bilirubin Negati ve Not Available In-Office Order Internal Use Only DO Not Attach Compendium DO Not Attach Compendium, Do Not Delete/merge, [id number] 01/18/2024 14:36:21 01/18/20 24 01/18/2024 urina lysis , dipst ick Glucose Negati ve Not Available In-Office Order Internal Use Only DO Not Attach Compendium DO Not Attach Compendium, Do Not Delete/merge, [id number] 01/18/2024 14:36:21 01/18/2001/18/2024 urina lysis , dipst ick Appearance Clear Not Available In-Offi ce Order Internal Use Only DO Not Attach Compendium DO Not Attach Compendium, Do Not Delete/merge, [id number] 01/18/2024 14:36:21 01/18/20 24 01/18/2024 urina lysis , dipst ick Color Yellow Not Available In-Office Order Internal Use Only DO Not Attach Compendium DO Not Attach Compendium, Do Not Delete/merge, [id number] 01/18/2024 14:36:21 12/05/1912/03/2022 MAMMO , scree efrem, tomos ynthe sis, bilat eral HISTOR Y: Salma nielsen is 52 years old and is seen for screen ing. The salma nielsen has a histor y of left stereo tactic core biopsy in October, - benign , right lumpec cedric in November and right ultras ound core biopsy in October, - malign ant. The salma nielsen has a histor y of Ultras ound guided biopsy proced ure reveal ed invasi ve ductal right breast carcin keanu in October,. The salma nielsen has no family histor y of breast cancer . FILMS COMPAR ED: The presmaylin nielsen examin ation has been compar ed to prior imagin g studie s dated 2017, 2018, 2019, 2020 and 2021. SARATH STATEM ENT: Comput er-aid ed detect ion was utiliz ed by the radiol ogist in the interp retati on of this examin ation. 3D tomosy nthesi s digita l mammog raphic images were obtain ed using standa rd projec tions. MAMMOG WHITNEY FINDIN GS: There are scatte red fibrog landul ar densit ies. (ACR BIRADS densit y Catego ry b) * There is a post-s urgica l change seen in the right breast . Findin g remain s unchan ged from the prior study. In the left breast , no suspic ious masses , calcif icatio ns or other abnorm alitie s are seen. IMPRES RONDA: There is no mammog raphic eviden ce of malign tara. Routin e follow -up mammog whitney in 1 year is recomm ended. The patimaylin nielsen will receiv e a lay summar y of the result s of this breast imagin g exam. Lay summar ies for mammog edita examin ations will also identi fy the patien ts person al breast tissue compos ition as requir ed by state law. BIRADS Catego ry 2: Benign Findin g(s) Thank you for referr ing your javieren t to us, Reji webb MD [phone] (Elect jamie pinto Signed - 2022 12:30) Copy: ALEXSANDRA MAYBERRY MD [facility] [address] [place] [address] [phone] FRANCESCA Rosen MD [address] [place] [address] [phone] SALMA Nielsen , [facility]) [address] [facility] [address], [place], [address], 12/04/2022 14:00:22 Result Notes None recorded. Problems Name Problem SNOMED Code Status Onset Date Resolution Date Notes Provider Name and Address Organization Details Recorded Time Malignant tumor of breast 063047172 Active 2016 Lumpectomy , XRT & Tamoxifen (until ) JOCELYN MAYBERRY MD [address] [facility], [address] [place], [address], [facility] 3 14:06:44 Problem Notes None recorded. Procedures Surgical History Date Name Laterality Status Provider Name and Address Organization Details Recorded Time 01/18/20 24 Date of Last Pap Smear completed JOCELYN MAYBERRY MD [address] [facility], [address] [place], [address], [facility] 01/26/2024 09:01:09 12/04/19 23 Date of Last Mammogram completed JOCELYN MAYBERRY MD [address], [place], [address], [facility] 12/04/2022 14:00:14 04/15/19 22 Colposcopy Procedure Note completed JOCELYN MAYBERRY MD [address], [place], [address], [facility] 04/15/2021 14:50:14 03/21/20 20 sleeve resection of stomach completed Kadi Webster DO [address] [facility], [place], [address], [facility] 06/11/2020 14:31:25 03/19/20 20 Colposcopy Procedure Note completed Chinyere Rueda MD [address], [place], [address], [facility] 03/19/2020 10:28:32 04/06/19 17 Endometrial Ablation completed Kadi Webster DO [address], [place], [address], [facility] 06/11/2020 14:30:55 04/06/19 17 lumpectomy of breast completed Kadi Webster DO [address] [facility], [place], [address], [facility] 06/11/2020 14:31:07 04/06/19 16 Elbow arthroscopy completed Kadi Webster DO [address], [place], [address], [facility] 06/11/2020 14:30:52 04/06/18 88 Dilation & suction completed Kadi Webster DO [address], [place], [address], [facility] 06/11/2020 14:28:56 hysterectomy completed Chinyere Rueda MD [address], [place], [address], [facility] 03/25/2021 15:49:26 Imaging Results Imaging Date Name Status LastModified by Organiz ation Details LastModified Time 12/03/2022 MAMMO, screening, tomosynthesis, bilateral completed [facility] ([facility]) [address] [facility] [address], [place], [address], 12/04/2022 14:00:22 Procedure Notes None recorded. Medical Equipment None Reported. Allergies Allergen ID Allergen Name Allergen Category Reaction Reaction Severity Criticality Documentation Date Start Date Code Code System Note Provider Name and Address Organization Details Recorded Time [id number] latex environme nt,medica tion itching Not available Not available 06/11/2020 12117 91 RxNorm Kadi Ku, DO [address] [facility], [address], [place], [address], [facility] 14:22:57 4761833 iodine medicatio n rash Not available Not available 06/11/2020 5933 RxNorm Kadi Ku, DO [address], [place], [address], [facility] 14:23:07 Medications Name Sig Start Date Stop Date Status Note LastModified by Organization Details LastModified Time celecoxib 200 mg capsule 04/08 completed Not Available Not Available Not Available cyclobenzap rine 10 mg tablet 01/21 completed Not Available Not Available Not Available furosemide 40 mg tablet 03/05 completed Not Available Not Available Not Available fluconazole 100 mg tablet TAKE 1 TABLET BY MOUTH TWICE A DAY FOR 7 DAYS 12/01 completed Not Available Not Available Not Available prednisone 10 mg tablet 01/21 completed Not Available Not Available Not Available Stool Softener 100 mg capsule 03/25 completed Not Available Not Available Not Available oxybutynin chloride ER 10 mg tablet,exte nded release 24 hr 03/06 completed Not Available Not Available Not Available azithromyci n 250 mg tablet 01/21 completed Not Available Not Available Not Available ibuprofen 800 mg tablet 03/16 completed Not Available Not Available Not Available tretinoin 0.025 % topical cream Apply pea sized AMOUNT TO entire FACE EVERY OTHER NIGHT AT BEDTIME FOR TWO WEEKS, increase TO nightly tolerated ] active Not Available Not Available No t Available metronidazo le 0.75 % (37.5 mg/5 gram) vaginal gel 01/21 completed Not Available Not Available Not Available ondansetron HCl 4 mg tablet 06/11 completed Not Available Not Available Not Available prednisone 5 mg tablet 03/06 completed Not Available Not Available Not Available terconazole 0.8 % vaginal cream 01/21 completed Not Available Not Available Not Available lidocaine 4 % topical cream 06/11 completed Not Available Not Available Not Available metronidazo le 500 mg tablet 01/21 completed Not Available Not Available Not Available phentermine 37.5 mg tablet TAKE 1 TABLET BY MOUTH EVERY DAY 12/01 completed Not Available Not Available Not Available acetaminoph en 500 mg tablet active Not Available Not Available Not Available triamcinolo ne acetonide 0.1 % topical cream 06/11 completed Not Available Not Available Not Available ketorolac 0.5 % eye drops INSTILL 1 DROP INTO BOTH EYES TWICE A DAY active Not Available Not Available No t Available famotidine 20 mg tablet 06/11 completed Not Available Not Available Not Available cephalexin 500 mg capsule TAKE 1 CAPSULE BY MOUTH THREE TIMES A DAY active Not Available Not Available No t Available Gas Relief (simethicon e) 80 mg chewable tablet 06/11 completed Not Available Not Available Not Available lidocaine 5 % topical patch APPLY 1 PATCH TOPICALLY ONCE DAILY, REMOVE PATCH AFTER 12 HOURS AND KEEP OFF 12 HOURS active Not Available Not Available No t Available triamcinolo ne acetonide 0.025 % topical ointment 06/11 completed Not Available Not Available Not Available betamethaso ne dipropionat e 0.05 % topical cream 06/11 completed Not Available Not Available Not Available gabapentin 300 mg capsule 06/11 completed Not Available Not Available Not Available hydrocortis one 2.5 % topical cream 06/11 completed Not Available Not Available Not Available clindamycin 2 % vaginal cream INSERT 1 APPLICATO R(S)FUL EVERYNIGH T AT BEDTIME FOR 14 DAYS 12/01 completed Not Available Not Available Not Available mupirocin 2 % topical ointment APPLY ON THE SKIN TWICE A DAY TO OPEN AREAS BOTH BREASTS DIRECTED active Not Available Not Available No t Available estradiol 0.01% (0.1 mg/gram) vaginal cream INSERT 1 GRAM EVERY DAY BY VAGINAL ROUTE AT BEDTIME FOR 14 DAYS. 12/01 completed Not Available Not Available Not Available methylpredn isolone 4 mg tablets in a dose pack 03/25 completed Not Available Not Available Not Available ondansetron 4 mg disintegrat ing tablet 03/25 completed Not Available Not Available Not Available cefdinir 300 mg capsule TAKE 1 CAPSULE BY MOUTH EVERY 12 HOURS FOR 10 DAYS active Not Available Not Available No t Available fluticasone propionate 50 mcg/actuati on nasal spray,suspe nsion USE 2 SRAYS IN EACH NOSTRIL TWICE A DAY active Not Available Not Available No t Available tamoxifen 20 mg tablet TAKE 1 TABLET BY MOUTH EVERY DAY 12/01 completed Not Available Not Available Not Available amoxicillin 875 mg-potassiu m clavulanate 125 mg tablet TAKE 1 TABLET BY MOUTH TWICE A DAY FOR 7 DAYS 12/01 completed Not Available Not Available Not Available oxycodone 5 mg tablet TAKE 1 TABLET BY MOUTH EVERY 4 TO 6 HOURS NEEDED FOR PAIN active Not Available Not Available No t Available magnesium 03/05 completed Not Available Not Available Not Available Fish Oil active Not Available Not Avai lable Not Available biotin active Not Available Not Availa ble Not Available Vitamin D 06/11 completed Not Available Not Available Not Available multivitami n active Not Available Not Available Not Available Calcium 600 with Vitamin D3 active Not Available Not Available N ot Available hydrocodone 7.5 mg-acetamin ophen 300 mg tablet 03/25 completed Not Available Not Available Not Available fiber chewable tablet Take by oral route. active Not Available Not Available No t Available diclofenac 1 % topical gel 06/11 completed Not Available Not Available Not Available GaviLyte-G 236 gram-22.74 gram-6.74 gram-5.86 gram oral solution PER INSTRUCTI ONS FROM GI. active Not Available Not Available No t Available Qsymia 7.5 mg-46 mg capsule, extended release TAKE 1 CAPSULE BY MOUTH EVERY DAY active Not Available Not Available No t Available Lomaira 8 mg tablet TAKE ONE TABLET BY MOUTH 2 TIMES DAILY, 30 MINUTES BEFORE MEALS. active Not Available Not Available No t Available Zepbound 10 mg/0.5 mL subcutaneou s pen injector 10 MG SUBCUTANE OUSLY ONCE WEEKLY active Not Available Not Available No t Available Zepbound 5 mg/0.5 mL subcutaneou s pen injector INJECT 5 MG SUBCUTANE OUSLY WEEKLY active Not Available Not Available No t Available Zepbound 2.5 mg/0.5 mL subcutaneou s pen injector 2.5 MG SUBCUTANE OUSLY ONCE WEEKLY active Not Available Not Available No t Available Zepbound 7.5 mg/0.5 mL subcutaneou s pen injector 7.5 MG SUBCUTANE OUSLY ONCE WEEKLY active Not Available Not Available No t Available Vitals Date Recorded Body height Systolic blood pressure Diastolic blood pressure Provider Name and Address Organization Details Last Updated DateTime 10/31/2021 167.64 cm 128 mm[Hg] 86 mm[Hg] [facility] 10/31/2021 16:19:42 Date Recorded Body height Systolic blood pressure Diastolic blood pressure Provider Name and Address Organization Details Last Updated DateTime 12/16/2021 167.64 cm 126 mm[Hg] 88 mm[Hg] [facility] 12/16/2021 11:38:38 Date Recorded Body height Systolic blood pressure Diastolic blood pressure Provider Name and Address Organization Details Last Updated DateTime 02/11/2022 167.64 cm 128 mm[Hg] 84 mm[Hg] Nilam Juarez [facility] 02/11/2022 09:02:08 Date Recorded Body height Body mass index (BMI) Body weight Systolic blood pressure Diastolic blood pressure Provider Name and Address Organization Details Last Updated DateTime 12/01/2022 167.64 cm 35.7 kg/m2 322740.9 1 g 106 mm[Hg] 70 mm[Hg] Sherie Mora [facility] 08:35:16 Date Recorded Body weight Systolic blood pressure Diastolic blood pressure Provider Name and Address Organization Details Last Updated DateTime 01/18/2024 45545.25 g 112 mm[Hg] 74 mm[Hg] Lianne Estrada [facility] 01/18/2024 14:34:44 Social History Question Answer Notes LastModified by Organizat ion Details LastModified Time Tobacco Smoking Status Never Smoker Amanda Harper [facility], [place] - [facility] 04/15/2021 14:08:48 What Is Your Level Of Alcohol Consumption? Occasional [email or web address] Information not available 04/15/2021 Concerns About Meeting Basic Needs (food, Housing, Heat, Etc)? 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 No Information not available 03/06/2020 Does Your Partner Physically Hurt You Or Threaten To Hurt You? No Information not available 03/06/2020 Has Your Partner Forced You To Have Sex Or Perform Sex Acts When You Did Not Want To? No Information not available 03/06/2020 Does Your Partner Insult, Scream At Or Talk Down To You? No Information not available 03/06/2020 Does Your Partner Control You Or Any Part Of Your Life? No Information not available 03/06/2020 Are You Afraid Of Your Partner? No Information not available 03/06/2020 Drug Use? No [email or web address] Information no t available 01/21/2019 Do You Feel Safe At Home? Yes Information not available 03/06/2020 What Was The Date Of Your Most Recent Tobacco Screening? 06/11/2020 Information not available 04/15/2021 Do You Use Protection During Sex? Usually [email or web address] Information not available 04/15/2021 Are You Sexually Active? Yes Information not available 04/15/2021 General Stress Level Medium [email or web address] Information not available 04/15/2021 Have You Recently Traveled Abroad? No Information not available 03/06/2020 Sex: Unknown Functional Status Question Answer Note LastModified by Organization D etails LastModified Time What is your exercise level? Moderate [email or web address] Information not available 04/15/2021 Mental Status None recorded. Family History Relationship Description Onset Age of this Age Resolved Age Notes LastModified by Organization Details LastModified Time Mother Malignant tumor of colon 65 starte d in append ix [email or web address] Not available 06/11/2020 14:29:25 Paternal Grandmother Malignant tumor of colon [email or web address] Not available 2020 14:29:34 Notes:No breast, ovarian, or uterine cancer. Medical History Condition Response Other Y Bladder disease Y Breast Cancer Y Gynecological History Statement/Question Response Date of Last Mammogram 12/03/2022 Date of LMP 05/27/2020 IPV Screen Done 01/18/2024 STIs/STDs Y Cervical Cancer N BrCa gene tested? Y Ovarian Cancer N Breast Cancer Y Last HPV Result Positive BrCa Positive N Abnormal Pap Y Infertility N Sexual Orientation HPV Vaccine N Duration of Flow (days) Endometriosis N Age at Menarche 12 Fibroids N Uterine Cancer N Current Control Method Hysterectom y Frequency of Cycle (Q days) Sexually Active? Y Sexual Problems? 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 N76.0 [id number] Chinyere Rueda MD [facility] [address] [address] 03/01/2019 13:54:15 03/01/2019 14:54:07 Candidiasis of vagina 75892551 B37.3 Desquamati ve inflammatory vaginitis 5971883534 77043 N76.0 [id number] Chinyere Rueda MD [facility] [address] [address] 06/02/2019 16:11:51 06/02/2019 16:27:09 Desquamative inflammatory vaginitis 8090865428 46168 N76.0 [id number] Chinyere Rueda MD [facility] [address] [address] 03/06/2020 11:00:26 03/06/2020 11:42:26 Gynecologic examination 87369773 Z01.739 [id number] Chinyere Rueda MD [facility] [address] [address] 03/19/2020 09:48:02 03/19/2020 10:39:34 Urine test negative 329623468 Z32.02 Abnormal c ervical Papanicolaou smear 956114437 R87.440 [id number] Kadi Darin [facility] [address] 06/11/2020 14:03:30 06/11/2020 14:46:25 Pain in pelvis 96166139 R10.2 - does not appear to be EVENT DESIGNER in origin - check TVUS - likely related to pt's constipati on - even though last few days have been better - if TVUS neg, and sx persist, pt will seek advice of bariatric surgeon or would rec seeing GI - no urinary symptoms, but ? nephrolith iasis - UA with neg blood [id number] Chinyere Rueda MD [facility] [address] [place] [address],[address] [address] 09/24/2020 08:53:56 09/24/2020 09:38:40 Dysuria 88203685 R30.9 Vaginal irritation 14703 6004 N89.8 previous history of DIV [id number] Chinyere Rueda MD [facility] [address] [place] [address],[address] [address] 03/25/2021 15:29:56 03/25/2021 16:14:44 Gynecologic examination 05302853 Z01.419 Vaginal discharge 547372 006 N89.8 [id number] JOCELYN MAYBERRY MD [facility] [place] [address] 04/15/2021 14:07:15 04/25/2021 15:28:38 Human papilloma virus infection 765016276 B97.7 Vaginitis 54888220 N76.0 [id number] JOCELYN MAYBERRY MD [facility] [address] 10/03/2021 08:02:15 10/03/2021 08:41:51 Vaginitis 57257210 N76.0 [id number] Chinyere Rueda MD [facility] [address] [place] [address] 10/31/2021 16:13:10 10/31/2021 16:40:23 Atrophic vaginitis 94444993 N95.2 Chronic vaginitis 584620 08 N76.1 [id number] Chinyere Rueda MD [facility] [place] [address] 12/16/2021 11:35:15 12/16/2021 12:26:40 Desquamative inflammatory vaginitis 7678405362 51490 N76.0 Atrophy of vagina 044456 009 N95.2 [id number] Chinyere Rueda MD [facility] [address] 02/11/2022 08:49:49 02/11/2022 09:32:02 Atrophic vaginitis 23456088 N95.2 Desquamati ve inflammatory vaginitis 3669982038 51677 N76.0 [id number] JOCELYN MAYBERRY MD [facility] [place] [address] 12/01/2022 08:27:32 12/01/2022 13:09:33 Gynecologic examination 85932210 Z01.419 History of malignant neoplasm of breast 104564978 Z85.3 [id number] JOCELYN MAYBERRY MD [facility] [address] [place] [address] 01/18/2024 14:27:22 01/18/2024 15:01:45 Gynecologic examination 61854591 Z01.419 History of malignant neoplasm of breast 076484251 Z85.3 Health Concerns Section Related Observation LastModified by Organization Detai ls LastModified Time None Recorded Concern Status LastModified by Organization Details LastModified Time None Recorded Advance Directives Directive None Recorded Payers Encounter Date Sequence Insurance Name Policy Number Policy Chavira Covered Member ID Chavira Member ID Guarantor Name 10/31/2021 1 [facility] [id number] Kimi Lord [id number] 1 Kimi Lord 12/16/2021 1 [facility] [id number] Kimi Lord [id number] 1 Kimi Mominee 02/11/2022 1 [facility] [id number] Kimi Lord [id number] 1 Kimi Vossinee 12/01/2022 1 [facility] [id number] Kimi Lord [id number] Kimilianet Lord Notes Date Note Type Note Provider Name and Address Organization Details Recorded Time 10/31/2021 text/html here for dischar ge for a few monthsvery irritatedwas treatedin the past with antibiotics with limited successon tamoxifen Chinyere Rueda MD [address], [address], [facility] 10/31/2021 16:39:50 12/16/2021 text/html here for follow upwas given permission from oncologist to use estrogen for short termshe used it for 14 days straight but felt minimal relief pt then self treated with clindamycin for questionable DIv Chinyere Rueda MD 175 [facility], [address] [place] [address], [address], [facility] 12/16/2021 13:13:45 02/11/2022 text/html here for follow upused clindamycin fro 2 weeks and 1 week of suppressionshe also was using estrogen cream 2 days a weekpt misunderstood that she was supposed to continue suppressionShe only used the medications for 3 weeks the patient stopped tamoxifen in February 04 after 5 years small amount of dischargewearing a pantyliner dailynot at bedtime Chinyere Rueda MD 175 [facility], [address] [place] [address], [phone], [facility] 02/11/2022 11:22:30 12/01/2022 text/html [facility] Annual GYNRe ported bypatient.History:no gynecologic complaints; no change in interval history Menstrual cycle:postmenopausal Urinary symptoms:No hematuria; No incontinence Vulva:No genital lesion Vagina:Normal vaginal discharge Breast:No breast pain; No breast lump; No nipple discharge Sexual activity:sexually active no ; No sexual complaints; No pain during intercourse; Normal libido Menopausal symptoms:No menopausal symptoms; Normal vaginal lubrication Psychological symptoms:No depression; No anxiety; No PMDD Pt with hx of abnormal PAP after Hyst. KASHMIR 1 on bx 03/25. PAP 03/26: ASCUS/HPV+.Hx of RIGHT breast ca in , sees onco & surgeon annually. MGM this week JOCELYN MAYBERRY MD [address], [address], [facility] 12/01/2022 08:56:01 01/18/2024 text/html Recently had MGM with surgeon. Continues to lose weight with PCP, very happy. Not presently SA, no issues (was having dyspareunia before) JOCELYN MAYBERRY MD [address], [address], [facility] 01/18/2024 14:55:27 01/18/2024 text/html [facility].History:no gynecologic complaints; no change in interval history Menstrual cycle:postmenopausal Urinary symptoms:No hematuria; No incontinence Vulva:No genital lesion Vagina:Normal vaginal discharge Breast:No breast pain; No breast lump; No nipple discharge Sexual activity:sexually active no ; No sexual complaints; No pain during intercourse; Normal libido Menopausal symptoms:No menopausal symptoms; Normal vaginal lubrication Psychological symptoms:No depression; No anxiety; No PMDD JOCELYN MAYBERRY MD [address], [address], [facility] 01/18/2024 14:55:27 OBGyn Episode No OBEpisode recorded.
--- OUTSIDE RECORDS SUMMARY | 2024-06-28 11:41 | XMS_ITS | Clinical Summary ---
Author Organization Patient Business Ser [facility] Address [address] [place] [address] Care Team Providers Care Reservation Clerk Name Role Phone Rajiv Floyd MD Primary Care Provider [phone] Surgical History Surgery Date Site/Laterality Comments LATERAL EPICONDYLE RELEASE Left PROCEDURE:LATERAL EPICONDYLE RELEASE BREAST LUMPECTOMY Right PROCEDURE:BREAST LUMPECTOMY FOOT SURGERY Bilateral PROCEDURE:FOOT SURGERY ENDOMETRIAL ABLATION 02/06/2017 N/A PROCEDURE:ENDOMETRIAL ABLATION;COMMENT:Procedure: ABLATION ENDOMETRIUM WITH NOVASURE; Surgeon: Buzz Parker MD; Location: [facility]; Service: Gynecology; Laterality: N/A; HYSTEROSCOPY 02/06/2017 N/A PROCEDURE:HYSTEROSCOPY;COMMENT: Procedure: HYSTEROSCOPY DIAGNOSTIC; Surgeon: Buzz Parker MD; Location: [facility]; Service: Gynecology; Laterality: N/A; LUMBAR EPIDURAL INJECTION 06/08/2019 Right PROCEDURE:LUMBAR EPIDURAL INJECTION;COMMENT:Procedure: LOCAL RIGHT LUMBAR TRANSFORAMINAL EPIDURAL STEROID INJECTION AT L5 AND S1; Surgeon: Chrissy Meadows MD; Location: [facility]; Service: Rehab Medicine; Laterality: Right; HYSTERECTOMY PROCEDURE:HYSTERECTOMY SLEEVE GASTROPLASTY PROCEDURE:SLEEVE GASTROPLASTY Medical History Medical History Date Comments Breast CA DX:Breast CA (HC C);COMMENT:right Seasonal allergies DX:Seasonal a llergies Family History Medical History Relation Name Comments Diabetes Father Colon cancer Mother Multiple sclerosis Sister Relation Name Status Comments Father Mother Sister Social History Tobacco Use Types Packs/Day Years Used Date Smoking Tobacco: Never Smokeless Tobacco: Never Alcohol Use Standard Drinks/Week Comments Yes 0 (1 standard drink = 0.6 oz pur e alcohol) Comments Unknown Sex and Gender Information Value Date Recorded Sex Assigned at Not on file Legal Sex Female 10:20 AM EST Gender Identity Not on file Sexual Orientation Not on file Obstetrics History Last Filed Vital Signs Vital Sign Reading Time Taken Comments Blood Pressure - - Pulse - - Temperature - - Respiratory Rate - - Oxygen Saturation - - Inhaled Oxygen Concentration - - Weight 100 kg (220 lb 8 oz) 06/11/2022 9:[address] Height 167.6 cm (5' 6 ) 06/11/2022 9:36 AM EST Body Mass Index 35.59 06/11/2022 9:36 AM EST Plan of Treatment Health Maintenance Due Date Last Done Comments Breast Cancer Screening 1970 DTaP,Tdap,and Td Vaccines (1 - Tdap) 1989 Hepatitis B Vaccines (1 of 3 - 19+ 3-dose series) 1989 Cervical Cancer Screening: P ap Smear 10/12/1991 Colorectal Cancer Screening: Colonoscopy 04/21/2020 Depression Screening 04/21/2020 HIV Screening 04/21/2020 Hepatitis C Screening 04/21/2020 Social Influencers of Health Screening 04/21/2020 Pneumococcal Vaccine: 50+ Ye ars (1 of 1 - PCV) 2020 Zoster Vaccines (1 of 2) 2020 COVID-19 Vaccine (1 - 2023-2 5 season) 2023 Influenza Vaccine (#1) 2023 HIB Vaccines Aged Out No longer eligi ble based on patient's age to complete this topic HPV Vaccines Aged Out No longer eligi ble based on patient's age to complete this topic Hepatitis A Vaccines Aged Out No long er eligible based on patient's age to complete this topic IPV Vaccines Aged Out No longer eligi ble based on patient's age to complete this topic MMR Vaccines Aged Out No longer eligi ble based on patient's age to complete this topic Meningococcal ACWY Vaccine Aged Out N o longer eligible based on patient's age to complete this topic Meningococcal B Vacine Aged Out No lo nger eligible based on patient's age to complete this topic Pneumococcal Vaccine: Pediat rics (0 to 5 Years) and At-Risk Patients (6 to 64 Years) Aged Out No longer eligible b ased on patient's age to complete this topic RSV Immunization Patients Un daren 20 months Aged Out No longer eligible b ased on patient's age to complete this topic Varicella Vaccines Aged Out No longer eligible based on patient's age to complete this topic Care Teams Reservation Clerk Relationship Specialty Start Date End Date Rajiv Floyd MD [address] [address] PCP - General Internal Medicine 02/04/17
--- OUTSIDE RECORDS SUMMARY | 2024-06-28 11:41 | XMS_ITS | Encounter Summary ---
Author Organization [facility] Address [address] [place] [address] Care Team Providers Care Pipelayer Name Role Phone Rajiv Floyd MD Unavailable Rajiv Floyd MD Primary Care Provider Fanny Cook RN Unavailable Buzz Parker MD Unavailable Mirna Mcdonough MD Unavailable Stephanie Edmondson MD Unavailable Catarina Chavira MD Unavailable [phone] Chinyere Rueda MD Primary Care Provider [phone] Rajiv Floyd MD Primary Care Provider Niko Cline MD Primary Care Provider Encounter Details Date Type Department Care Team (Late st Contact Info) Description 06/01/2018 Scanned Document [facility] Urologic Surgery Thelma [address] [facility] [address] [place] [address] Buzz Parker MD [address] [place] [address] Social History Tobacco Use Types Packs/Day Years Used Date Smoking Tobacco: Never Smokeless Tobacco: Never Alcohol Use Standard Drinks/Week Comments Yes 0 (1 standard drink = 0.6 oz pur e alcohol) 2 drinks onweekends AUDIT-C Answer Date Recorded Frequency of Alcohol Consumption 2-4 times a thu01/06/2018 Average Number of Drinks 3 or 4 018 Frequency of Binge Drinking Less than monthly [facility] - Occupational Stress Questionnaire Answer Date Recorded Feeling of Stress To some extent 01/06/2018 Sex and Gender Information Value Date Recorded Sex Assigned at Not on file Gender Identity Not on file Sexual Orientation Not on file documented as of this encounter Plan of Treatment Upcoming Encounters Date Type Department Care Team (Late st Contact Info) Description 02/15/2025 9:30 AM EST Office Visit [facility] Breast Care & Surgery [address] [address] La Espinoza APRN [address] [place] [phone] documented as of this encounter Visit Diagnoses Not on filedocumented in this encounter Care Teams Pipelayer Relationship Specialty Start Date End Date Rajiv Floyd MD [address] [place] [address] PCP - General Internal Medicine 10/27/16 12/15/21 Chinyere Rueda MD [address] [address] PCP - General Obstetrics and Gynecology 12/16/21 07/29/22 Rajiv Floyd MD [address] [place] [address] PCP - General Internal Medicine 07/30/22 02/09/24 Niko Cline MD [address] [facility] [address] [place] [address] PCP - General Family Medicine 02/10/24 Rajiv Floyd MD [address] [place] [address] Consulting Provider Internal Medicine 10/27/16 07/29/22 Fanny Cook, RN [address] [place] [address] Oncology Nurse Navigator 11/03/16 01/04/21 Buzz Parker MD [address] [place] [address] OBGYN Obstetrics and Gynecology 12/23/17 Mirna Mcdonough MD [address] [place] [phone] (Work) Hematology Oncology 12/23/17 07/02/21 Stephanie Edmondson MD [address] [place] [address] Hematology Oncology 07/03/21 Catarina Chavira MD [address] [place] [address] Surgery, Breast 07/03/21 documented as of this encounter
--- OUTSIDE RECORDS SUMMARY | 2024-06-28 11:41 | XMS_ITS | Encounter Summary ---
Author Organization [facility] Address [address] [place] [address] Care Team Providers Care It Recruiter Name Role Phone Rajiv Floyd MD Unavailable Rajiv Floyd MD Primary Care Provider [phone] Fanny Cook RN Unavailable [phone] Encounter Details Date Type Department Care Team (Late st Contact Info) Description 12/03/2016 10:30 AM EDT Hospital Encounter [facility] Oncology [address] [place] [address] Social History Tobacco Use Types Packs/Day Years [...] Living Expenses Not hard at all 07/07/2018 [facility] - Occupational Stress [...] on file Sexual Orientation Not on file COVID-19 Exposure Response Date Recorded In the last 10 days, have yo u been in contact with someone who was confirmed or suspected to have Coronavirus/COVID-19? No / Unsure 07/30/2022 7:49 AM EDT documented as of this encounter Plan of Treatment Upcoming Encounters Date Type Department Care Team (Late st Contact Info) Description 02/15/2025 9:30 AM EST Office Visit [facility] Breast Care & Surgery [address] [address] La Espinoza, CONGRESSIONAL AIDE [address] [place] [address] documented as of this encounter Visit Diagnoses Not on filedocumented in this encounter Care Teams It Recruiter Relationship Specialty Start Date End Date Rajiv Floyd MD [address] [place] [address] PCP - General Internal Medicine 10/27/16 12/15/21 Rajiv Floyd MD [address] [place] [address] Consulting Provider Internal Medicine 10/27/16 07/29/22 Fanny Cook, SADIE [address] [place] [address] Oncology Nurse Navigator 11/03/1601/04 documented as of this encounter
--- OUTSIDE RECORDS SUMMARY | 2024-06-28 11:41 | XMS_ITS | Clinical Summary ---
Author Organization [facility] Address [address] [place] [address] Care Team Providers Care Geriatric Aide Name Role Phone Rajiv Floyd MD Primary Care Provider [phone] Carrie Cespedes MD Unavailable [phone] Allergies Active Allergy Reactions Criticality Noted Date Comments Iodine Rash Low 11/08/2020 Latex Itching Low 11/04/2016 Perfume Swelling High 10/24/2020 Povidone-Iodine Rash Low 04/11/2020 Medications tamoxifen (NOLVADEX) 20 mg chemo tablet Take 20 mg by mouth. Active cholecalciferol , vitamin D3, 25 mcg (1,000 unit) tablet Take 1,000 Units by mouth. Active biotin-silicon ecxv-G-cyinccys 3,000 mcg -100 mg-50 mg tablet extended release Take 1 tablet by mouth daily. Active magnesium oxide,aspartate ,citr 400 mg magnesium capsule Take 400 mg by mouth. Active vitamin E 400 unit capsule Take 400 Units by mouth. Active omega-3 fatty acids-fish oil 300-1,000 mg capsule Take 1 tablet by mouth. Active calcium carbonate-vitam in D3 500 mg(1,250mg) -200 unit per tablet Take 1 tablet by mouth 2 (two) times a day with meals. Active HYDROcodone-billy taminophen (XODOL) 7.5-300 mg per tablet Take 1 tablet by mouth every 6 (six) hours as needed for severe pain (8-10) for up to 15 doses. Max Daily Amount: 4 tablets 15 tablet Active Additional Information Patient not taking.Reported on 11/08/2020 celecoxib (CeleBREX) 200 mg capsule TAKE 1 CAPSULE BY MOUTH EVERY DAY 30 capsule 1 Active Active Problems Problem Noted Date Diagnosed Date Pelvic pain in female 08/22/2020 Overview (08/22/2020): Added automatically from request for surgery [id number] Lumbar radiculopathy 06/08/2019 Chronic right-sided low back pain with right-ike ed sciatica 11/10/2017 Greater trochanteric bursitis, right 11/10/2017 Right hip pain 11/10/2017 Abnormal finding on breast imaging 10/27/2016 Malignant neoplasm of upper- outer quadrant of right female breast 10/27/2016 Family History Medical History Relation Comments Diabetes Father bypass surgery Colon cancer Mother Relation Status Comments Father Alive Mother Social History Tobacco Use Types Packs/Day Years Used Date Smoking Tobacco: Never Smokeless Tobacco: Never Alcohol Use Standard Drinks/Week Comments Yes 0 (1 standard drink = 0.6 oz pur e alcohol) social Comments No Sex and Gender Information Value Date Recorded Sex Assigned at Not on file Legal Sex Female 12:46 PM EDT Gender Identity Not on file Sexual Orientation Not on file Last Filed Vital Signs Vital Sign Reading Time Taken Comments Blood Pressure 112/71 12/25/2020 11:01 AM EDT Pulse 60 12/25/2020 11:01 AM EDT Temperature 36.6 ??C (97.8 ??F) 10/25/2020 4:25 PM ED T Respiratory Rate 16 10/25/2020 4:25 PM EDT Oxygen Saturation 97% 10/25/2020 4:25 PM EDT Inhaled Oxygen Concentration - - Weight 92.1 kg (203 lb) 12/25/2020 11:01 AM EDT Height 167.6 cm (5' 6 ) 12/25/2020 11:01 AM EDT Body Mass Index 32.77 12/25/2020 11:01 AM EDT Plan of Treatment Health Maintenance Due Date Last Done Comments CT Colonography 1970 Colonoscopy 1970 Colorectal Cancer Screening 1970 FIT-DNA (Cologuard) 1970 FIT 1970 FOBT 1970 Flex Sigmoidoscopy - 5y 1970 HIV Screening 1970 DTaP,Tdap,and Td Vaccines (1 - Tdap) 1988 Hepatitis B Vaccines (1 of 3 - 19+ 3-dose series) 1989 Pneumococcal Vaccine, 50+ Years (1 of 1 - PCV) 2020 Zoster Vaccines (1 of 2) 2020 COVID-19 Vaccine (1 - 2023- season) 2023 Influenza Vaccine (#1) 2023 Breast Cancer Screening 12/10/2025 12/11/19 24, 12/11/2023, 12/03/2022, Additional history exists Pap Smear 01/17/2027 01/18/2024, 11/05, 03/25/2021, Additional history exists Cervical Cancer Screening 12/02/2027 HPV/Cotest 12/02/2027 12/01/2022, 03/07, 03/06/2020 HPV Vaccines Aged Out No longer eligi ble based on patient's age to complete this topic Hepatitis A Vaccines Aged Out No long er eligible based on patient's age to complete this topic MMR Vaccines Aged Out No longer eligi ble based on patient's age to complete this topic Meningococcal Vaccine Aged Out No jose isatu eligible based on patient's age to complete this topic Procedures Procedure Name Priority Date/Time Associated Diagnosis Comments DERMPATH US PATHLABS Routine 05/20/2024 Neoplasm of uncertain behavior of skin from Last 3 Months Results * [facility] (05/20/2024) Case Report [facility] ?Case: [id number] ? Authorizing Provider: ??Leila Vickers ?Collected: ? 05/20/2024 ? Ordering Location: ? [facility] Department of Received: ?05/27/2024 1353 ? Dermatology Pathology Lab ? Services ? Pathologist: ? Deni Angelo MD ? Specimen: ?Right lateral inferior breast ? 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 Focal cytological atypia is identified. There is overlying pigmented parakeratosis and focal spongiosis suggestive of recent trauma. A SOX10 stain highlights scattered mid and focally high-level pagetoid single cells. The stain was performed using appropriate tissue controls. Deeper sections do not reveal further diagnostic features. This case has been reviewed with Joana De La Cruz MD, who agrees with the above diagnosis. Given the presence of the margin, the focal cytological atypia, and the pagetoid scatter, complete removal of this site is recommended. 06/01/2024 6:23 PM EST [facility] at 1823 EST Clinical Information Dysplastic nevus 06/01/2024 6:23 PM EST [facility] Gross Description Received in formalin is an irregularly shaped fragment of skin measuring 0.5x0.4x0.1 cm. The specimen is bisected and submitted entirely in one cassette. (Gross description performed by [facility].) 06/01/2024 6:23 PM EST [facility] Comment Received from [facility], [address] [place] [address], [address], [place] [address] are one slide and one block labeled [id number] , which are retained for our files. 06/01/2024 6:23 PM EST [facility] Embedded Images 06/01/2024 6:23 PM EST [facility] Skin 05/20/2024 05/27/2024 1:5 3 PM EST Leila Vickers LAB PATHOLOGY (NO SOURCE) Fin al Result [facility] [address] [facility] [place] [address], from Last 3 Months Insurance Advance Directives For more information, please contact: [phone] Documents on File Type Date Recorded Patient Architectural Draftsperson Expl anation Advance Directives 10/26/2020 8:33 AM Care Teams Geriatric Aide Relationship Specialty Start Date End Date Rajiv Floyd MD [address] [place] [address],[address] [place] [address] PCP - General Internal Medicine 10/23/20 Carrie Cespedes MD [address] [place] [address]-OBSTETRICS/[place], [place] [address] Obstetrics and Gynecology 11/08/20
--- OUTSIDE RECORDS SUMMARY | 2024-06-28 11:41 | XMS_ITS | Encounter Summary ---
Author Organization [facility] Address [address] [place] [address] Care Team Providers Care Razor Sharpener Name Role Phone Rajiv Floyd MD Unavailable Rajiv Floyd MD Primary Care Provider Buzz Parker MD Unavailable Stephanie Edmondson MD Unavailable Catarina Chavira MD Unavailable [phone] Chinyere Rueda MD Primary Care Provider Rajvi Floyd MD Primary Care Provider Niko Cline MD Primary Care Provider [phone] Encounter Details Date Type Department Care Team (Late st Contact Info) Description 07/31/2021 Scanned Document [facility] Breast Care & Surgery [address] [place] [phone] La Espinoza APRN [address] [facility] [address] [place] [address] Social History Tobacco Use Types Packs/Day Years [...] Living Expenses Not hard at all 07/07/2018 [facility] [place] of Occupat ional Health - Occupational Stress [...] Exposure Response Date Recorded In the last month, have you been in contact with someone who was confirmed or suspected to have Coronavirus / COVID-19? No / Unsure 07/03/2021 10:00 AM EDT documented as of this encounter Plan of Treatment Upcoming Encounters Date Type Department Care Team (Late st Contact Info) Description 02/15/2025 9:30 AM EST Office Visit [facility] Breast Care & Surgery [address] [phone] La Espinoza, ANGELA [address] [place] [address] documented as of this encounter Visit Diagnoses Not on filedocumented in this encounter Care Teams Razor Sharpener Relationship Specialty Start Date End Date Rajiv Floyd MD [address] [place] [address] PCP - General Internal Medicine 10/27/16 12/15/21 Chinyere Rueda MD [address] [address] PCP - General Obstetrics and Gynecology 12/16/21 07/29/22 Rajiv Floyd MD [address] [place] [address] PCP - General Internal Medicine 07/30/22 02/09/24 Niko Cline MD 15 [facility] 5 [place] [address] PCP - General Family Medicine 02/10/24 Rajiv Floyd MD [address] [place] [address] Consulting Provider Internal Medicine 10/27/16 07/29/22 Buzz Parker MD [address] [place] [address] OBGYN Obstetrics and Gynecology 12/23/17 Stephanie Edmondson MD [address] [place] [address] Hematology Oncology 07/03/21 Catarina Chavira MD [address] [place] [address] Surgery, Breast 07/03/21 documented as of this encounter
--- OUTSIDE RECORDS SUMMARY | 2024-06-28 11:41 | XMS_ITS | Encounter Summary ---
Author Organization [facility] Address [address] [place] [address] Care Team Providers Care Instructor Robotics Name Role Phone Rajiv Floyd MD Unavailable Rajiv Floyd MD Primary Care Provider Fanny Cook RN Unavailable Buzz Parker MD Unavailable Mirna Mcdonough MD Unavailable Stephanie Edmondson MD Unavailable Catarina Chavira MD Unavailable [phone] Chinyere Rueda MD Primary Care Provider Rajiv Floyd MD Primary Care Provider Niko Cline MD Primary Care Provider [phone] Encounter Details Date Type Department Care Team (Late st Contact Info) Description 12/03/2016 Scanned Document [facility] Cancer [place] [facility] Brit Sanchez [address] [place] [address] Mirna Mcdonough MD [address] [place], [place] [phone] Social History Tobacco Use Types Packs/Day Years [...] 9:30 AM EST Office Visit [facility] Breast [facility] & Surgery [address] [phone] La Espinoza, BUSINESS PARTNER [address] [place], [place] [phone] documented as of this encounter Visit Diagnoses Not on filedocumented in this encounter Care Teams Instructor Robotics Relationship Specialty Start Date End Date Rajiv Floyd MD [address] [place] [address] PCP - General Internal Medicine 10/27/16 12/15/21 Chinyere Rueda MD [address] [address] PCP - General Obstetrics and Gynecology 12/16/21 07/29/22 Rajiv Floyd MD [address] [place] [address] PCP - General Internal Medicine 07/30/22 02/09/24 Niko Cline MD 15 [facility] 5 [place] [address] PCP - General Family Medicine 02/10/24 Rajiv Floyd MD [address] [place] [address] Consulting Provider Internal Medicine 10/27/16 07/29/22 Fanny Cook, SADIE [address] [place] [phone] Oncology Nurse Navigator 11/03/16 01/04/21 Buzz Parker MD [address] [place] [address] OBGYN Obstetrics and Gynecology 12/23/17 Mirna Mcdonough MD [address] [place] [address] Hematology Oncology 12/23/17 07/02/21 Stephanie Edmondson MD [address] [place] [address] Hematology Oncology 07/03/21 Catarina Chavira MD [address] [place] [address] [address] [place] [id number] Surgery, Breast 07/03/21 documented as of this encounter
--- OUTSIDE RECORDS SUMMARY | 2024-06-28 11:42 | XMS_ITS | Encounter Summary ---
Author Organization [facility] Address [address] [place] [address] Care Team Providers Care Wheel Assembler Name Role Phone Rajiv Floyd MD Unavailable Rajiv Floyd MD Primary Care Provider Fanny Cook RN Unavailable Buzz Parker MD Unavailable Mirna Mcdonough MD Unavailable Stephanie Edmondson MD Unavailable Catarina Chavira MD Unavailable [phone] Chinyere Rueda MD Primary Care Provider Rajiv Floyd MD Primary Care Provider Niko Cline MD Primary Care Provider [phone] Encounter Details Date Type Department Care Team (Late st Contact Info) Description 01/20/2017 Scanned Document [facility] Breast Care & Surgery [place] [address] [facility] [address] [place] [address] Catarina Chavira MD 399 [facility] 200 [place] [address] Social History Tobacco Use Types Packs/Day Years [...] 9:30 AM EST Office Visit [facility] Breast Care & Surgery [address] [phone] La Espinoza, SHRUB PLANTER [address] [place] [address] documented as of this encounter Visit Diagnoses Not on filedocumented in this encounter Care Teams Wheel Assembler Relationship Specialty Start Date End Date Rajiv Floyd MD [address] [place] [address] PCP - General Internal Medicine 10/27/16 12/15/21 Chinyere Rueda MD 1050 [facility] [address] [place] [address] PCP - General Obstetrics and Gynecology 12/16/21 07/29/22 Rajiv Floyd MD [address] [place] [address] PCP - General Internal Medicine 07/30/22 02/09/24 Niko Cline MD 15 [facility] 5 [place] [address] PCP - General Family Medicine 02/10/24 Rajiv Floyd MD [address] [place] [address] Consulting Provider Internal Medicine 10/27/16 07/29/22 Fanny Cook, RN [address] [place] [address] Oncology Nurse Navigator 11/03/16 01/04/21 Buzz Parker MD [address] [place] [address] OBGYN Obstetrics and Gynecology 12/23/17 Mirna Mcdonough MD [address] [place] [address] Hematology Oncology 12/23/17 07/02/21 Stephanie Edmondson MD [address] [place] [address] Hematology Oncology 07/03/21 Catarina Chavira MD [address] [place] [address] [address] [place] [address] Surgery, Breast 07/03/21 documented as of this encounter
--- OUTSIDE RECORDS SUMMARY | 2024-06-28 11:42 | XMS_ITS | Encounter Summary ---
Author Organization [facility] Address [address] [place] [address] Care Team Providers Care Sawsmith Name Role Phone Rajiv Floyd MD Unavailable Rajiv Floyd MD Primary Care Provider Fanny Cook RN Unavailable Buzz Parker MD Unavailable Mirna Mcdonough MD Unavailable Stephanie Edmondson MD Unavailable Catarina Chavira MD Unavailable [phone] Chinyere Rueda MD Primary Care Provider Rajiv Floyd MD Primary Care Provider Niko Cline MD Primary Care Provider Encounter Details Date Type Department Care Team (Late st Contact Info) Description 03/03/2017 Scanned Document [facility] Breast Care & Surgery [place] [address] [facility] [address] [place] [address] Catarina Chavira MD 399 [facility] 200 [place] [address] Social History Tobacco Use Types Packs/Day Years [...] Description 02/15/2025 9:30 AM EST Office Visit [facility] Breast Care & Surgery [address] [phone] La Espinoza, PAPERHANGER AND PAINTER [address] [place] [address] documented as of this encounter Visit Diagnoses Not on filedocumented in this encounter Care Teams Sawsmith Relationship Specialty Start Date End Date Rajiv Floyd MD [address] [place] [address] PCP - General Internal Medicine 10/27/16 12/15/21 Chinyere Rueda MD 1050 [facility] [address] [place] [address] PCP - General Obstetrics and Gynecology 12/16/21 07/29/22 Rajiv Floyd MD [address] [place] [address] PCP - General Internal Medicine 07/30/22 02/09/24 Niko Cline MD 15 [facility] 5 [place] [address] PCP - General Family Medicine 02/10/24 Rajiv Floyd MD [address] [place] [address] Consulting Provider Internal Medicine 10/27/16 07/29/22 Fanny Cook, RN [address] [place] [address] Oncology Nurse Navigator 11/03/16 01/04/21 Buzz Parker MD [address] [place] [address] OBGYN Obstetrics and Gynecology 12/23/17 Mirna Mcdonough MD [address] [place] [address] Hematology Oncology 12/23/17 07/02/21 Stephanie Edmondson MD [address] [place] [address] Hematology Oncology 07/03/21 Catarina Chavira MD [address] [place] [address] 200 [place] [address] Surgery, Breast 07/03/21 documented as of this encounter
--- OUTSIDE RECORDS SUMMARY | 2024-06-28 11:42 | XMS_ITS | Encounter Summary ---
Author Organization [facility] Address [address] [place] [address] Care Team Providers Care Storage Receipt Poster Name Role Phone Rajiv Floyd MD Unavailable Rajiv Floyd MD Primary Care Provider Fanny Cook RN Unavailable Buzz Parker MD Unavailable Mirna Mcdonough MD Unavailable Stephanie Edmondson MD Unavailable Catarina Chavira MD Unavailable Chinyere Rueda MD Primary Care Provider Rajiv Floyd MD Primary Care Provider Niko Cline MD Primary Care Provider [phone] Encounter Details Date Type Department Care Team (Late st Contact Info) Description 12/22/2016 Scanned Document [facility] Breast Care & Surgery [place] [address] [facility] [address] [place] [address] Catarina Chavira MD 399 [facility] 200 [place] [address] Social History Tobacco Use Types Packs/Day Years [...] 9:30 AM EST Office Visit [facility] Breast Care & Surgery [address] [phone] La Espinoza, HOSPITAL SOCIAL WORKER [address] [place] [address] documented as of this encounter Visit Diagnoses Not on filedocumented in this encounter Care Teams Storage Receipt Poster Relationship Specialty Start Date End Date Rajiv Floyd MD [address] [place] [address] PCP - General Internal Medicine 10/27/16 12/15/21 Chinyere Rueda MD 1050 [facility] [address] [place] [address] PCP - General Obstetrics and Gynecology 12/16/21 07/29/22 Rajiv Floyd MD [address] [place] [address] PCP - General Internal Medicine 07/30/22 02/09/24 Niko Cline MD 15 [facility] 5 [place] [address] PCP - General Family Medicine 02/10/24 Rajiv Floyd MD [address] [place] [address] Consulting Provider Internal Medicine 10/27/16 07/29/22 Fanny Cook, RN [address] [place] [address] Oncology Nurse Navigator 11/03/16 01/04/21 Buzz Parker MD [address] [place] [address] OBGYN Obstetrics and Gynecology 12/23/17 Mirna Mcdonough MD [address] [place] [address] Hematology Oncology 12/23/17 07/02/21 Stephanie Edmondson MD [address] [place] [address] Hematology Oncology 07/03/21 Catarina Chavira MD [address] [place] [address] [address] [place] [address] Surgery, Breast 07/03/21 documented as of this encounter
--- OUTSIDE RECORDS SUMMARY | 2024-06-28 11:42 | XMS_ITS | Encounter Summary ---
Author Organization [facility] Address [address] [place] [address] Care Team Providers Care New Car Salesperson Name Role Phone Rajiv Floyd MD Unavailable Rajiv Floyd MD Primary Care Provider Fanny Cook RN Unavailable Buzz Parker MD Unavailable Mirna Mcdonough MD Unavailable Stephanie Edmondson MD Unavailable Catarina Chavira MD Unavailable [phone] Chinyere Rueda MD Primary Care Provider Rajiv Floyd MD Primary Care Provider Niko Cline MD Primary Care Provider Reason for Visit * Reason Comments Medication Refill Encounter Details Date Type Department Care Team (Late st Contact Info) Description 09/28/2019 Telephone [facility] Urologic Surgery [place] [address] [facility] [address] [place] [address] Aureliano Davis MD 201 [facility] 300 [place], [place] [address] Medication Refill Social History Tobacco Use Types Packs/Day Years [...] Living Expenses Not hard at all 07/07/2018 [facility] [place] of Occupat ional Health - Occupational Stress [...] Description 02/15/2025 9:30 AM EST Office Visit [facility] Breast Care & Surgery [address] [phone] La Espinoza APRN [address] [place] [address] documented as of this encounter Visit Diagnoses Not on filedocumented in this encounter Care Teams New Car Salesperson Relationship Specialty Start Date End Date Rajiv Floyd MD [address] [place] [address] PCP - General Internal Medicine 10/27/16 12/15/21 Chinyere Rueda MD [address] [address] PCP - General Obstetrics and Gynecology 12/16/21 07/29/22 Rajiv Floyd MD [address] [place] [address] PCP - General Internal Medicine 07/30/22 02/09/24 Niko Cline MD 15 [facility] 5 [place] [address] PCP - General Family Medicine 02/10/24 Rajiv Floyd MD [address] [place] [address] Consulting Provider Internal Medicine 10/27/16 07/29/22 Fanny Cook, SADIE [address] [place] [address] Oncology Nurse Navigator 11/03/16 01/04/21 Buzz Parker MD [address] [place] [address] OBGYN Obstetrics and Gynecology 12/23/17 Mirna Mcdonough MD [address] [place] [phone] Hematology Oncology 12/23/17 07/02/21 Stephanie Edmondson MD [address] [place] [address] Hematology Oncology 07/03/21 Catarina Chavira MD [address] [place] [address] [place], [place] [phone] Surgery, Breast 07/03/21 documented as of this encounter
--- OUTSIDE RECORDS SUMMARY | 2024-06-28 11:42 | XMS_ITS ---
Author Name [facility] Organization Unknown Results Test Name/Text Value Interpretation Date Range Source [facility] GROSS DESCRIPTION Received in formalin is an irregularly shaped fragment of skin measuring 0.5x0.4x0.1 cm. The specimen is bisected and submitted entirely in one cassette. (Gross description performed by [facility].) Normal [id number] [facility] CLINICAL INFORMATION Dysplastic nevus Normal [id number] [facility] DIAGNOSIS COMMENT Received from [facility], [address] [place] [address], [address], [place] [address], are 3 slides and 3 blocks labeled [id number] , which are retained for our files. Normal [id number] [facility] CLINICAL INFORMATION A, B, C) dysplastic nevus - *margins requested* Normal [id number] [facility] History of Medication Use Medication Directions Dispensed Refills Start Date End Date Stat amoxicillin 875 mg-potassium clavulanate 125 mg tablet TAKE 1 TABLET BY MOUTH TWICE A DAY FOR 7 DAYS 3 completed 06/30/2023 completed fluticasone propionate 50 mcg/actuation nasal spray,suspension USE 2 SRAYS IN EACH NOSTRIL TWICE A DAY active triamcinolone acetonide 0.1 % topical cream 1 completed prednisone 10 mg tablet 9 completed dexAMETHasone (DECADRON) 2 MG tablet Take 5 tablets (10 mg total) by mouth once. 03/30/2024 active Zepbound 5 mg/0.5 mL subcutaneous pen injector INJECT 5 MG SUBCUTANEOUSLY WEEKLY active ibuprofen 800 mg tablet 0 completed 03/18/2023 4 completed Zepbound 10 MG/0.5ML pen-injector 10 MG SUBCUTANEOUSLY ONCE WEEKLY 01/06/2024 active 05/05/2023 completed Vitamin D3 (CHOLECALICEROL) 2000 units tablet Take 1 tablet (2,000 Units total) by mouth daily. active GaviLyte-G 236 gram-22.74 gram-6.74 gram-5.86 gram oral solution PER INSTRUCTIONS FROM GI. active fluconazole 100 mg tablet TAKE 1 TABLET BY MOUTH TWICE A DAY FOR 7 DAYS TAKE 1 TABLET BY MOUTH TWICE A DAY FOR 7 DAYS completed celeCOXIB (CeleBREX) 200 MG capsule Take 1 tablet by mouth daily. 12/21/2020 4 active tamoxifen 20 mg tablet TAKE 1 TABLET BY MOUTH EVERY DAY 3 completed acetaminophen 500 mg tablet acetaminophen 500 mg tablet completed 03/13/2023 completed acetaminophen (TYLENOL) 325 MG tablet Take 650 mg by mouth 4 times daily (every 6 hours) as needed for mild pain. active 10/10/2022 completed tamoxifen 20 mg tablet TAKE 1 TABLET BY MOUTH EVERY DAY TAKE 1 TABLET BY MOUTH EVERY DAY completed clindamycin 2 % vaginal cream INSERT 1 APPLICATOR(S)FUL everynight at bedtime for 7 days INSERT 1 APPLICATOR(S)FUL everynight at bedtime for 7 days completed cephalexin 500 mg capsule TAKE 1 CAPSULE BY MOUTH THREE TIMES A DAY active acetaminophen 500 mg tablet active Biotin 3 MG Tab Take 1 tablet by mouth daily. active Zepbound 2.5 mg/0.5 mL subcutaneous pen injector 2.5 MG SUBCUTANEOUSLY ONCE WEEKLY active 05/14/2023 4 completed multivitamin multivitamin comple moris 10/30/2023 completed 04/29/2023 completed Lomaira 8 mg tablet TAKE ONE TABLET BY MOUTH 2 TIMES DAILY, 30 MINUTES BEFORE MEALS. active ibuprofen (MOTRIN) 800 mg tablet Take 800 mg by mouth 4 times daily (every 6 hours) as needed for mild pain. 3 active fluconazole (diFLUcan) 100 MG tablet Diflucan 100 mg tablet Take 1 tablet every 72 hours by oral route. 3 active betamethasone dipropionate 0.05 % topical cream 1 completed 10/30/2023 completed hydrocodone 7.5 mg-acetaminophen 300 mg tablet 1 completed metronidazole 500 mg tablet 9 completed mupirocin 2 % topical ointment APPLY ON THE SKIN TWICE A DAY TO OPEN AREAS BOTH BREASTS DIRECTED active saccharomyces boulardii (FLORASTOR) 250 MG capsule Take 1 capsule (250 mg total) by mouth 2 (two) times a day. active 10/09/2022 completed Allergies Allergen Reaction Severity Comment Documented Date Source Statu s IODINE Rash [facility] Problems Problem Status Onset Date Problem Type Date of Resolution Source Abnormal finding on breast imaging active 2016-10-27 [facility]Act [facility] Malignant neoplasm of upper-outer quadrant of right female breast active 2016-10-27 [facility]Act [facility] Malignant tumor of breast active 2016-11-30 [facility]Act [facility] Sore throat active [facility] Nasopharyngitis active [facility] Encounters Encounter Type Encounter Reason Primary Diagnosis Location Date Ambulatory Acute pharyngitis, unspecified Acute pharyngitis, unspecified [facility] 03/30/2024 Ambulatory Personal history of malignant neoplasm of breast Personal history of malignant neoplasm of breast [facility] 02/10/2024 Ambulatory [facility] exam (general) (routine) w/o abn findings [facility] exam (general) (routine) w/o abn findings [facility] 01/18/2024 Ambulatory Malignant neoplasm o f upper-outer quadrant of right female breast Malignant neoplasm of upper-outer quadrant of right female breast [facility] 02/04/2023 Ambulatory Malignant neoplasm o f upper-outer quadrant of right female breast Malignant neoplasm of upper-outer quadrant of right female breast [facility] 01/07/2023 Ambulatory Malignant neoplasm o f upper-outer quadrant of right female breast Malignant neoplasm of upper-outer quadrant of right female breast [facility] 12/16/2022 Ambulatory Postmenopausal atrophic vaginitis [facility] 12/01/2022 Ambulatory Personal history of malignant neoplasm of breast [facility] 07/30/2022 Ambulatory [facility] 02/11/2022 Ambulatory Malignant neopla sm of upper-outer quadrant of right female breast [facility] 01/03/2022 Ambulatory Malignant neopla sm of upper-outer quadrant of right female breast [facility] 12/16/2021 Ambulatory [facility] 12/16/2021 Ambulatory [facility] 10/31/2021 Ambulatory [facility] 10/03/2021 Ambulatory Malignant neopla sm of upper-outer quadrant of right female breast [facility] 07/03/2021 Ambulatory [facility] 04/15/2021 Ambulatory [facility] 03/25/2021 Care Team Organization Name Specialty Phone Email Start Date End [facility] [place] [facility] 02/10/2024 [facility] 0 07/29/2023 [facility] 0 07/29/2023 [facility] 02/05/2023 024 [facility] 12/26/2022 024 [place] [facility] 12/16/2022 025 [facility] 02/14/2022 [place] [facility] JEN [facility] 01/03/2022 5 [place] [facility] 07/03/2021 022 [place] [facility] Jen [facility] 07/03/2021 2 [facility] 03/25/2021 02/11/2022
== END 2024-06-28 10:50 | disposition home or self-care (01) ==
LOC: HO.HBS 09:59
PROVIDERS: PCP Family Medicine; Visit Provider Physician Assistant Surgical
DX: E66.3 Overweight (principal); Z68.29 Body mass index [BMI] 29.0-29.9, adult; Z90.3 Acquired absence of stomach [part of]; Z98.84 Bariatric surgery status
CPT/HCPCS: 99213

== ENCOUNTER → 2024-06-28 09:58 | Outpatient (BNVA) | payer OTHER, SELFPAY | PROVIDERS: PCP Family Medicine; Visit Provider Physician Assistant Surgical ==